=== PATIENT | female | born 1980 | race African-American/Black ===

== ENCOUNTER 2020-07-01 18:57 | Emergency (ER) | payer OTHER, SELFPAY ==
[2020-07-01 19:14] VITALS: BP 137/89; PULSE 65; RESP 16; TEMP 36.7; O2SAT 99
--- NOTE | 2020-07-01 19:27 | ED.EAR ---
HPI - Ear Problem General Chief complaint: Ear Stated complaint: Ear pain Time Seen by Provider: 07/01/20 19:18 Source: patient and RN notes reviewed Mode of arrival: ambulatory Limitations: no limitations History of Present Illness HPI Narrative: Patient presents today complaining of ringing in her right ear with pain, absent hearing. Reports it came on gradually last night as she sat next to a loud speaker. She currently rates her pain 9/10. She has been using [id number] eardrops without relief. Denies any other sick symptoms to include cough, congestion, rhinorrhea, sore throat. MD Complaint: ear pain and decreased hearing Related Data Home Medications Medication Instructions Recorded Confirmed Adult Probiotic 07/01/20 Daily Multi-Vitamin 07/01/20 07/01/20 hydrochlorothiazide 12.5 mg PO DAILY 07/01/20 07/01/20 Allergies Allergy/AdvReac Type Severity Reaction Status Date / Time No Known Allergies Allergy Verified 07/01/20 19:19 Review of Systems Review of Systems: Narrative: CONSTITUTIONAL: Denies body aches, fever, chills, or sweats. EYES: Denies visual changes, redness, or discharge. ENT: Denies rhinorrhea, congestion, sore throat. + Right ear pain and absent hearing CARDIOVASCULAR: Denies chest pain, palpitations, or edema. RESPIRATORY: Denies cough or dyspnea. GASTROINTESTINAL: Denies abdominal pain, nausea, vomiting, or diarrhea. GENITOURINARY: Denies dysuria or hematuria. SKIN: Denies rash, itching, or wounds. MUSCULOSKELETAL: Denies back pain, joint pain, or myalgia. NEUROLOGIC: Denies headache, numbness, tingling, or weakness. PSYCH: Denies depression or anxiety. PENDING SALE TO [facility] Past Medical History Medical History (Updated 07/01/20 @ 19:31 by Carlene Thurman, [facility], ) Hypertension Family History Family History (Updated 12/01/17 @ 08:27 by DOCTOR UNKNOWN) Mother Patient's mother is in good health Father Patient's father is in good health Social History Social History Smoking status: Never smoker Alcohol intake: current Gender identity (if verbalized by the patient): Female Comments At time of signature, I have reviewed and agree with nursing past medical, surgical, social and family history unless otherwise noted. Please see nursing chart for further information. There is no relevant family history pertinent to the presenting complaint Exam Narrative: Exam Narrative: GENERAL: Well-appearing, well-nourished, and in no acute distress. HEAD: Normocephalic, atraumatic. EYES: EOMI. No redness or drainage. Conjunctivae normal. ENT: Mucous membranes pink and moist. Nares clear. No rhinorrhea. Left TM normal. Right TM is normal in color, but retracted. No rupture noted. No erythema or purulent drainage noted. NECK: Normal AROM. CHEST: No respiratory distress. EXTREMITIES: Normal range of motion. No edema. SKIN: Warm, dry, no rash. Capillary refill normal. Normal skin turgor. NEURO: No focal deficits. Alert and oriented x3. Gait steady. PSYCH: Normal affect. No signs of depression or anxiety. Course Vital Signs Vital signs: Vital Signs Temperature 98.1 F 07/01/20 19:14 Pulse Rate 65 07/01/20 19:14 Respiratory Rate 16 07/01/20 19:14 Blood Pressure 137/89 07/01/20 19:14 Pulse Oximetry 99 07/01/20 19:14 Temperature 98.1 F 07/01/20 19:14 Pulse Rate 65 07/01/20 19:14 Respiratory Rate 16 07/01/20 19:14 Blood Pressure 137/89 07/01/20 19:14 Pulse Oximetry 99 07/01/20 19:14 Reviewed. Pt has been instructed to follow up with her PCP regarding her elevated blood pressure today. Medical Decision Making Differential Diagnosis Differential Diagnosis: Otitis media, otitis externa, ruptured TM, serous otitis, eustachian tube dysfunction, cerumen impaction Vital Signs Vital Signs: Vital Signs Temperature 98.1 F 07/01/20 19:14 Pulse Rate 65 07/01/20 19:14 Respiratory Rate 16 07/01/20 19:14 Blood Pressure 137/89 10/2
== END 2020-07-01 19:34 | disposition home or self-care (01) ==
PROVIDERS: Emergency Provider Nurse Practitioner
DX: H73.891 Other specified disorders of tympanic membrane, right ear (principal); I10 Essential (primary) hypertension
CPT/HCPCS: 99201; G0463

== ENCOUNTER 2021-06-05 17:59 | Outpatient (CLI) | payer OTHER, SELFPAY ==
--- NOTE | ~2021-06-05 | MM_ITS ---
EXAMINATION: MM screening bonilla BI w brittni HISTORY: Screening TECHNIQUE: Craniocaudal and mediolateral oblique 3-D tomosynthesis images were obtained and synthetic 2-D images were generated. CAD analysis was submitted and interpreted. COMPARISON: No prior mammogram is available for comparison at this institution. BREAST PARENCHYMAL COMPOSITION: There are scattered areas of fibroglandular density. FINDINGS: There is no evidence of suspicious mass, calcification, or architectural distortion to sugg est malignancy in either breast. There has been no suspicious interval change. IMPRESSION: 1. No mammographic evidence of malignancy. 2. Recommend routine screening mammography in one year. BI-RADS Category 1: Negative Reviewed, dictated and finalized at location A.
== END 2021-06-05 18:00 ==
PROVIDERS: Visit Provider Obstetrics & Gynecology
DX: Z12.31 Encounter for screening mammogram for malignant neoplasm of breast (principal)
CPT/HCPCS: 77063; 77067

== ENCOUNTER 2021-06-24 10:59 | Emergency (ER) | payer BC, SELFPAY ==
--- NOTE | ~2021-06-24 | XR_ITS ---
EXAMINATION: XR lumbar spine 2-3V DATE: 06/24/2021 12:05 INDICATION: Low back pain radiating to the left leg post fall TECHNIQUE: Anteroposterior and lateral views of the lumbar spine, and cone-down lateral view of the l umbosacral junction were obtained. COMPARISON: None. FINDINGS: 4 mm retrolisthesis L5 on S1. 2 mm anterolisthesis L4 on L5. Vertebral body and disc heights are norm al. Severe bilateral facet osteoarthritis at L4-L5, moderate at L5-S1 and mild in the more cephalad l umbar spine. Sacral arches are intact. Bilateral sacral iliac joints are normal. Mild right hip osteo arthritis. IMPRESSION: 1. Moderate to severe lower lumbar facet osteoarthritis with 2 mm anterolisthesis L4 on L5 and 4 mm r etrolisthesis L5 on S1. Reviewed, dictated and finalized at location A. IMPRESSION: 1. Moderate to severe lower lumbar facet osteoarthritis with 2 mm anterolisthes is L4 on L5 and 4 mm retrolisthesis L5 on S1.
[2021-06-24 11:29] VITALS: BP 158/108; PULSE 63; RESP 18; TEMP 36.7; O2SAT 100
--- NOTE | 2021-06-24 12:27 | ED.FALL ---
HPI - Fall General Chief Complaint: Fall Stated Complaint: fall/back pain/uri Time Seen by Provider: 06/24/21 11:14 Source: patient Mode of arrival: ambulatory Limitations: no limitations History of Present Illness HPI Narrative: Patient fell down the stairs April 28, complaining of lower back pain. Patient denies radiation of pain, also denies other injuries. Patient was seen by emergency room at that time. But the pain is not improving. Patient denies any fever, chills, nausea, vomiting, tingling, numbness, weakness, radiation of pain. Pain worse with movement, better at rest Related Data Home Medications Medication Instructions Recorded Confirmed Adult Probiotic 07/01/20 Daily Multi-Vitamin 07/01/20 07/01/20 hydrochlorothiazide 12.5 mg PO DAILY 07/01/20 07/01/20 Allergies Allergy/AdvReac Type Severity Reaction Status Date / Time No Known Allergies Allergy Verified 06/24/21 11:32 Review of Systems Review of Systems: CONSTITUTIONAL: Denies fever, chills, or sweats. EYES: Denies visual changes, redness, or discharge. ENT: Denies rhinorrhea, congestion, sore throat, or otalgia. CARDIOVASCULAR: Denies chest pain, palpitations, or edema. RESPIRATORY: Denies cough or dyspnea. GASTROINTESTINAL: Denies abdominal pain, nausea, vomiting, or diarrhea. GENITOURINARY: Denies dysuria or hematuria. SKIN: Denies rash or itching. MUSCULOSKELETAL: Denies back pain, joint pain, or myalgia. NEUROLOGIC: Denies headache, numbness, or weakness. PSYCHIATRIC: Denies anxiety or depression. PMFSH Past Medical History Medical History Hypertension Family History Family History Mother Patient's mother is in good health Father Patient's father is in good health Social History Social History Smoking status: Never smoker Alcohol intake: current Gender identity (if verbalized by the patient): Female Exam Narrative: General appearance: Well-developed, well-nourished Skin: Normal color Head: Normocephalic, nontraumatic Eyes: Clear conjunctiva ENT: Oropharynx normal, ears normal, nose normal Neck: Supple, nontender Chest and respiratory: Airway patent, no respiratory distress, no accessory muscle use Heart: Regular rate/rhythm Abdomen: Soft, nontender, no organomegaly, quiet bowel sounds Vascular: Normal peripheral pulses, normal capillary refill. Musculoskeletal: Diffuse tenderness across lumbar area, no bruises, no swelling, no rash, limited range of motion. Neurologic: Alert and oriented ?3, LEGAL ACTIVITY ADJUDICATOR is normal as tested, no gross motor deficit Course Course Emergency Course: Stable Vital Signs Vital signs: Vital Signs Temperature 36.7 C 06/24/21 11:29 Pulse Rate 63 06/24/21 11:29 Respiratory Rate 18 06/24/21 11:29 Blood Pressure 158/108 H 06/24/21 11:29 Pulse Oximetry 100 06/24/21 11:29 Temperature 36.7 C 06/24/21 11:29 Pulse Rate 63 06/24/21 11:29 Respiratory Rate 18 06/24/21 11:29 Blood Pressure 158/108 H 06/24/21 11:29 Pulse Oximetry 100 06/24/21 11:29 MDM - Fall MDM Narrative Medical decision making narrative: Lower back pain secondary to a fall, musculoskeletal pain is my concern x-ray lumbar spine ordered Imaging Data Radiologist's impression: Impressions Lumbar Spine X-Ray 06/24/21 12:27 IMPRESSION: 1. Moderate to severe lower lumbar facet osteoarthritis with 2 mm anterolisthesis L4 on L5 and 4 mm retrolisthesis L5 on S1. Critical Care Time Critical Care Time Critical Care Time: No Discharge Plan Discharge Cli
== END 2021-06-24 13:35 | disposition home or self-care (01) ==
PROVIDERS: Emergency Provider Emergency Medicine
DX: S39.92XA Unspecified injury of lower back, initial encounter (principal); I10 Essential (primary) hypertension; W10.9XXA Fall (on) (from) unspecified stairs and steps, initial encounter; M47.816 Spondylosis without myelopathy or radiculopathy, lumbar region
CPT/HCPCS: 72100; 99283

== ENCOUNTER 2022-04-26 13:44 | Emergency (ER) | payer BC, SELFPAY ==
[2022-04-26 14:07] VITALS: BP 142/74; PULSE 73; RESP 18; TEMP 36.1; O2SAT 100
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
--- NOTE | 2022-04-26 16:01 | PC.NURSE ---
CO-oximeter reading 0%. MD aware.
== END 2022-04-26 16:24 | disposition home or self-care (01) ==
PROVIDERS: Emergency Provider Emergency Medicine
DX: R51.9 Headache, unspecified (principal); I10 Essential (primary) hypertension; E66.01 Morbid (severe) obesity due to excess calories; Z68.41 Body mass index [BMI] 40.0-44.9, adult
CPT/HCPCS: 99281

== ENCOUNTER 2024-01-07 18:36 | Emergency (ER) | payer BC, SELFPAY ==
[2024-01-07 18:57] VITALS: BP 127/92; PULSE 74; RESP 16; TEMP 36.3; O2SAT 100
--- NOTE | 2024-01-07 18:58 | ED.URI ---
HPI - URI/Sore Throat General Chief Complaint: Upper Respiratory Infection Stated Complaint: Cough Time Seen by Provider: 01/07/24 18:58 Source: patient, RN notes reviewed and old records reviewed Mode of arrival: ambulatory Limitations: no limitations History of Present Illness HPI Narrative: 43 year old female presents to [facility] care with complaints of cough and congestion with nasal congestion and drainage since Thursday with no known fever but has had chills and felt hot at times. Patient reports that she has had some headaches, denies any ear pain or any sore throat. Patient reports that she has been taking Tylenol and also Mucinex for her symptoms, states that cough is productive of clear mucous. Patient reports that she has not had any dyspnea.She reports that both of her parents have similar symptoms MD elicited complaint: cough, rhinorrhea, nasal congestion and other (headache, chills and felt feverish) Onset (ago): day(s) (5-6 day) Severity: moderate Description of mucous: clear Able to tolerate fluids by mouth: Yes Treatments prior to arrival: acetaminophen and other (Mucinex) Related Data Home Medications Medication Instructions Recorded Confirmed losartan 50 mg tablet 50 mg PO DIRECTED 01/07/24 01/07/24 Allergies Allergy/AdvReac Type Severity Reaction Status Date / Time No Known Allergies Allergy Verified 01/07/24 18:48 Review of Systems Review of Systems: CONSTITUTIONAL: Reports malaise, chills, sweats, has felt feverish EYES: Denies visual changes, redness, or discharge. ENT: Reports rhinorrhea, congestion, sinus pain, no otalgia and no sore throat. CARDIOVASCULAR: Denies chest pain, palpitations, or edema. RESPIRATORY: Reports productive cough.? Denies dyspnea. GASTROINTESTINAL: Denies abdominal pain, nausea, vomiting, diarrhea SKIN: Denies rash or itching. MUSCULOSKELETAL: Denies myalgia. NEUROLOGIC: Reports headache. All systems reviewed & are unremarkable except as noted in HPI and below PMFSH Past Medical History Medical History Benign essential HTN Chronic migraine Degenerative arthritis of knee, bilateral History of meniscal tear Hypertension Morbid (severe) obesity due to excess calories PIH ( induced hypertension) Surgical History Surgical History H/O left knee surgery 10/08/2012 - Debrided left patellar tendon History of tubal ligation 10/2017 Family History Family History Mother CHF (congestive heart failure) Father Patient's father is in good health Other Diabetes mellitus Glaucoma Heart disease High cholesterol Hypertension Social History Social History Social History: Smoking status: Never smoker Alcohol intake: current Drinks per week: 4 Substance use: never Substance use type: does not use Living arrangements: with family Occupation/Education: occupation 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 There is no relevant family history pertinent to the presenting complaint Exam Narrative: GENERAL: Well-appearing, well-nourished, and in no acute distress. HEAD: Normocephalic EYES: PERRLA, conjunctivae clear ENT: Nares clear, turbinates edematous and erythematous, clear discharge. Mucous membranes moist.sinus pressure and headache TM pearly gary with dull light reflex bilaterally; no tragal tenderness. Oropharynx eryth
== END 2024-01-07 19:51 | disposition home or self-care (01) ==
PROVIDERS: Emergency Provider Registered Nurse; PCP Internal Medicine
DX: J06.9 Acute upper respiratory infection, unspecified (principal); Z20.822 Contact with and (suspected) exposure to COVID-19; I10 Essential (primary) hypertension; M17.0 Bilateral primary osteoarthritis of knee; E66.01 Morbid (severe) obesity due to excess calories; Z68.41 Body mass index [BMI] 40.0-44.9, adult
CPT/HCPCS: 87426; 87804; 99213; G0463

== ENCOUNTER 2024-06-30 10:14 | Emergency (ER) | payer BC, SELFPAY ==
[2024-06-30 10:22] VITALS: BP 142/83; RESP 16; TEMP 36.4
[2024-06-30 11:07] LABS: Add Urine Microscopic? YES; Appearance Urine Clear (Clear); Bacteria Urine 4+ /hpf; Bilirubin Urine Negative (Negative); Blood Urine 3+ (Negative); Color Urine Yellow (Yellow); Glucose Urine UA Negative (Negative); Ketones Urine Negative (Negative); Leukocyte Esterase Ur Trace LEU/UL (Negative); Nitrate Urine Negative (Negative); Non Pathogenic Casts 0-2; Protein Urine Negative (Negative); RBC Urine 0-2 /hpf (0-2); Specific Grav Ur 1.013 (1.001-1.035); Squamous Epithelial Cell Urine Occasional /hpf (Few); Urobilinogen Urine 0.2 mg/dL (<2.0); WBC Urine 0-5 /hpf (0-3); pH Urine 7.5 (5.0-9.0)
[2024-06-30 11:13] LABS: Basophils Percent Auto 0.6 % (0.2-1.2); Eosinophils Percent Auto 0.6 % (0-4.4); Hematocrit 34.3 % (37.0-47.0); Hemoglobin 11.6 g/dL (12.0-15.0); Immature Granulocyte Absolute 0.01 K/mm3 (0.00-0.031); Immature Granulocyte Percent A 0.2 % (0-0.5); Lymphocytes Absolute Auto 2.33 K/mm3 (0.9-3.2); Lymphocytes Percent Auto 48.9 % (18.3-44.2); Mean Corpuscular HGB Conc 33.8 g/dl (32-36); Mean Corpuscular Hemoglobin 31.2 pg (26-34); Mean Corpuscular Volume 92.2 fl (80-100); Mean Platelet Volume 9.3 fl (7.4-10.4); Monocytes Absolute Auto 0.3 K/mm3 (0.1-0.6); Monocytes Percent Auto 6.7 % (2.6-8.5); Platelet Count Result 305 k/mm3 (150-375); Red Blood Count 3.72 M/mm3 (4.2-5.4); Red Cell Distribution Width 13.2 % (11.5-14.5); White Blood Count 4.8 K/mm3 (4.5-10.0)
[2024-06-30 11:22] LABS: Anion Gap 7 mmol/L (4-12); Blood Urea Nitrogen 10 mg/dL (7-17); Calcium 8.9 mg/dL (8.4-10.2); Carbon Dioxide 27 mmol/L (22-30); Chloride 103 mmol/L (98-107); Estimated CRCL calculation 142 ml/min; Estimated Glomerular Filt Rate > 60; Glucose 89 mg/dL (65-110); Potassium 3.7 mmol/L (3.4-5.0); Sodium 137 mmol/L (137-145)
--- NOTE | 2024-06-30 12:45 | ED_ITS ---
HPI - Female Genitourinary General Chief complaint: Vaginal Bleeding Stated complaint: vag bleeding, endometrial biopsy 06/23 Time Seen by Provider: 06/30/24 10:31 Source: patient Mode of arrival: ambulatory Limitations: no limitations History of Present Illness HPI Narrative: 43-year-old with a history of hypertension, abnormal vaginal bleeding here with the complaints of heavy vaginal bleeding for past few days. Patient states that she recently had endometrial biopsy following day after the biopsy she said she had heavy vaginal bleeding with few clots. She is presently on progesterone 10 mg p.o. b.i.d. she states that she continues to have bleed. She states that she was dizzy on the 1st day however today she is feeling much better. She denies any fever or chills. Has occasional lower abdominal cramping MD elicited complaint: vaginal bleeding Pertinent past history: other (DUB) Onset (ago): week(s) Severity: moderate Quality of pain: cramping Consistency: intermittent Vaginal bleeding: moderate Exacerbating factors: none Relieving factors: none Associated symptoms: abdominal pain Treatment prior to arrival: other Related Data Home Medications Medication Instructions Recorded Confirmed losartan 50 mg tablet 50 mg PO DIRECTED 01/07/24 06/23/24 Allergies Allergy/AdvReac Type Severity Reaction Status Date / Time No Known Allergies Allergy Verified 06/30/24 10:16 [facility] Past Medical History Medical History (Updated 06/30/24 @ 12:46 by Jamie Tenorio MD) Benign essential HTN Chronic migraine Degenerative arthritis of knee, bilateral History of meniscal tear Hypertension Morbid (severe) obesity due to excess calories PIH ( induced hypertension) Thyroid nodule Surgical History Surgical History H/O left knee surgery 10/08/2012 - Debrided left patellar tendon History of tubal ligation 10/2017 Family History Family History Mother CHF (congestive heart failure) Lupus Father Glaucoma High cholesterol Hypertension Other Diabetes mellitus Heart disease Social History Social History Social History: Smoking status: Never smoker Alcohol intake: current Drinks per week: 4 Alcohol use details: occasionally Substance use: never Substance use type: does not use Do You Feel Safe in your Home?: Yes Lack of Transportation: No Lack of Food: Never True Current Housing: I Have Housing Concerned About Future Housing: No Difficulty Paying Gas/Electric Bills: YES Difficulty Paying for Meds: No Currently Unemployed: No Education: Associate Degree Difficulty w/ Childcare or Family Care: No Living arrangements: with family Additional living arrangements comments: kids Occupation/Education: occupation 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 HEAD: Normocephalic, atraumatic. EYES: PERRLA and EOMI. NECK: Supple. CHEST: Clear to auscultation. No respiratory distress. HEART: Regular rate and rhythm. No murmur heard. Normal peripheral pulses. ABDOMEN: Soft, nontender, nondistended, normal active bowel sounds. EXTREMITIES: Normal range of motion. No edema. SKIN: Warm, dry, no rash. NEURO: No focal deficits. Alert and oriented x3. PSYCH: Normal mood and affect. Course Course Emergency Course: Informed patient about her lab work. I discussed with Dr. Hoskins recommended to continue Provera of waiting for biopsy results . She will talk to the patient once she gets the pathology report. Patient feels comfortable going home Vital Signs Vital signs: Vital Signs Temperature 36.4 C L 06/30/24 10:22 Respiratory Rate 16 06/30/24 10:22 Blood Pressure 142/83 H 06/30/24 10:22 Temperature 36.4 C L 06/30/24 10:22 Respiratory Rate 16 06/30/24 10:22 Blood Pressure 142/83 H 06/30/24 10:22 MDM - Female Genitourinary Differential Diagnosis Differential diagnosis: Likely dysmenorrhea and other (DUB) Medical Records Attestation: I reviewed the patient's medical records. Lab Data Attestation: I reviewed the patient's lab results. 06/30/24 11:06 06/30/24 11:06 Labs: Lab Results 06/30/24 06/30/24 Range/Units 10:43 11:06 WBC 4.8 (4.5-10.0) K/mm3 RBC 3.72 L (4.2-5.4) M/mm3 Hgb 11.6 L (12.0-15.0) g/dL Hct 34.3 L (37.0-47.0) % MCV 92.2 (80-100) fl MCH 31.2 (26-34) pg MCHC 33.8 (32-36) g/dl RDW 13.2 (11.5-14.5) % Plt Count 305 (150-375) k/mm3 MPV 9.3 (7.4-10.4) fl Immature Gran % (Auto) 0.2 (0-0.5) % Neut % (Auto) 43.0 L (45.5-73.1) % Lymph % (Auto) 48.9 H (18.3-44.2) % [place] % (Auto) 6.7 (2.6-8.5) % Eos % (Auto) 0.6 (0-4.4) % Baso % (Auto) 0.6 (0.2-1.2) % Lymph # (Auto) 2.33 (0.9-3.2) K/mm3 [place] # (Auto) 0.3 (0.1-0.6) K/mm3 Eos # (Auto) 0.0 (0-0.3) K/mm3 Baso # (Auto) 0.0 (0.0-0.1) K/mm3 Abs Immat Gran (auto) 0.01 (0.00-0.031) K/mm3 Absolute Neuts (auto) 2.0 (1.3-6.7) K/mm3 Absolute Nucleated RBC 0.000 (0.0-0.012) K/mm3 Nucleated RBC % 0.0 (0.0-0.2) % Sodium 137 (137-145) mmol/L Potassium 3.7 (3.4-5.0) mmol/L Chloride 103 (98-107) mmol/L Carbon Dioxide 27 (22-30) mmol/L Anion Gap 7 (4-12) mmol/L BUN 10 (7-17) mg/dL Creatinine 0.60 L (0.7-1.0) mg/dL Estim Creat Clear Calc 142 ml/min Estimated GFR > 60 (59 - ) Glucose 89 (65-110) mg/dL Calcium 8.9 (8.4-10.2) mg/dL Urine Color Yellow (Yellow) Urine Appearance Clear (Clear) Urine pH 7.5 (5.0-9.0) Ur Specific [place] 1.013 (1.001-1.035) Urine Protein Negative (Negative) mg/dL Urine Glucose (UA) Negative (Negative) mg/dL Urine Ketones Negative (Negative) mg/dL Ur Blood (Man) 3+ H (Negative) Urine Nitrate Negative (Negative) Urine Bilirubin Negative (Negative) Urine Urobilinogen 0.2 (<2.0) mg/dL Leukocyte Esterase Rfl Trace H (Negative) BRENDAN/UL Urine RBC 0-2 (0-2) /hpf Urine WBC 0-5 (0-3) /hpf Ur Squamous Epith Cells Occasional (Few) /hpf Urine Bacteria 4+ H /hpf Urine Casts 0-2 Discharge Plan Discharge Clinical Impression: Dysfunctional uterine bleeding Patient Disposition: Home, Self-Care Condition: Stable Instructions: Abnormal (Dysfunctional) Uterine Bleeding (ED) Additional Instructions: continue home medications, follow with Dr. Hoskins , Drink more fluids. Prescriptions: New medroxyprogesterone [Provera] 10 mg tablet 10 mg PO BID Qty: 20 0RF No Action losartan 50 mg tablet 50 mg PO DIRECTED medroxyprogesterone [Provera] 10 mg tablet 10 mg PO DAILY Qty: 10 0RF Follow-up/Referrals: Shaka,MD Rl [Primary Care Provider] - Saloni Hoskins MD [Physician] - Time of Disposition: 12:48
[2024-06-30 12:56] VITALS: BP 141/93; PULSE 84; RESP 16
== END 2024-06-30 12:57 | disposition home or self-care (01) ==
PROVIDERS: Emergency Provider Family Medicine; PCP Internal Medicine
DX: N93.8 Other specified abnormal uterine and vaginal bleeding (principal); I10 Essential (primary) hypertension; E66.01 Morbid (severe) obesity due to excess calories; Z68.41 Body mass index [BMI] 40.0-44.9, adult; M17.0 Bilateral primary osteoarthritis of knee
CPT/HCPCS: 36415; 80048; 81001; 85025; 99283

== ENCOUNTER 2025-06-24 11:49 | Outpatient (CLI) | payer BC, SELFPAY ==
--- OUTSIDE RECORDS SUMMARY | 2003-11-06 03:00 | XMS_ITS | Continuity of Care Document ---
Author Organization [facility] Address [address] [place] [address] Phone Care Team Providers Care Employee Relations Director Name Role Phone Kaycee, Kashif Unavailable Unavailable Advance Directives Directive Yes / No Effective Date File Name No Information Encounters Encounter Description Practice Location Reason(s) For Visit Diagnoses Date Provider Providers Copied on Encounter [facility], [address], [place], [place], [id number], [place] tel:[phone] [facility] [place] No Information Mar-0 1-200 4 Doisy Edward. [address] [facility] [place] , [address], [place], [address], [place]. tel:[phone] Family History Family Member Type Diagnosis Age At Onset No Information Payers Payer name Insurance type Covered republican ID Authoriza tion(s) [facility] Out Of State [id number] Social History Type Description Quantity Date Captured Comments Sex Female Smoking Status No Information Chief Complaint And Reason For Visit No Information Reason For Referral Reason For Referral No Information History Of Present Illness Encounter Date Complaint History Of Prese nt Illness No Information Functional Status Date Functional Assessmen t No Information Instructions Date Instruction Additional Infor mation No Information Assessments Type Assessment Date No Information Patient Care Teams Name Effective Dates (start - stop) Status Members No Information
--- OUTSIDE RECORDS SUMMARY | 2024-06-25 04:00 | XMS_ITS ---
Author Organization [facility] Address [address] [place] [address] Care Team Providers Care Area Intelligence Technician Name Role Phone Migration, Provider Unavailable Unavailable REASON FOR VISIT EMR-Gianluca Encounters Encounter Location Date Provider Diagnosis [facility] [address] [facility] [place] [id number] 06/25/2024 Prov ider Migration Plan Of Treatment No Information Progress Notes * Marcy BLANCODOB:[birth year] (44 yo F)Acc No.[id number]:06/25/2024 Patient: Alvino Marcy MACIEL :1980 A ge:43 Y S ex:Female Address:[address] [place] [address], [address] Subjective: * Chief Complaints: * E MR-Gianluca * * Date:
--- OUTSIDE RECORDS SUMMARY | 2024-06-26 04:00 | XMS_ITS ---
Author Organization [facility] Address [address] [place] [address] Care Team Providers Care Cloth Folder Machine Name Role Phone Migration, Provider Unavailable Unavailable Allergies Allergen (clinical drug ingredient) Drug/Non Drug Allergy documented on EMR Reaction Allergy Type Onset Date Status losartan Losartan Unknown Drug Allergy 06/03/2016 Active REASON FOR VISIT EMR-Gianluca Social History Social History Additional Details Category Social Info Options Details Migrated Social History Migrated Social History Alcohol history:Currently drinks alcohol , Education level:Some College , 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[employer] , Frequency of drinks:Drinks rarely , Has the patient used cocaine?:No , Has the patient used marijuana?:No , Marital status: , Number of children:1 , Tobacco history:Never smoker Encounters Encounter Location Date Provider Diagnosis [facility] [address] [place], [place] [id number] 06/26/2024 Prov ider Migration Plan Of Treatment No Information Progress Notes * Marcy PALOMODOB:[birth year] (44 yo F)Acc No.[id number]:06/26/2024 Patient: Alvino GONSALEZFRENCH Marcy :1980 A ge:43 Y S ex:Female Address:[address] [place] [address], [address] Subjective: * Chief Complaints: * E MR-Gianluca * Surgical History: knee surgery ,notes : left * Family History: F ather: Glaucoma. M other: Congestive heart failure, H ypertension, L upus. 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 * Allergies: L osartan: Allergy - Onset Date 06/03/2016 * * Date:
--- OUTSIDE RECORDS SUMMARY | 2025-06-24 11:56 | XMS_ITS | Patient Health Record ---
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 , Frequency of drinks:Drinks rarely , Has the patient used cocaine?:No , Has the patient used marijuana?:No , Marital status: , Number of children:1 , Tobacco history:Never smoker Problems Problem Type SNOMED Code ICD Code Onset Dates Problem Status W/U Status Risk Notes Problem Obesity due to excess calories (708812406) Other obesity due to excess calories (E66.09) 06/03/2016 Active confirmed Problem Alopecia areata (05720806) Alopecia areata, unspecified (L63.9) 06/03/2016 Active confirmed Problem Hirsutism (651696243) Hirsutism (L68.0) 06/03/2016 Active confirmed Problem Body mass index 40+ - severely obese (071620465) Body mass index (BMI) 40.0-44.9, adult (Z68.41) 06/03/2016 Active confirmed Encounters Encounter Location Date Provider Diagnosis [facility] [address] [place] [id number] 06/25/2024 Prov ider Migration [facility] [address] [place] [id number] 06/26/2024 Prov ider Migration Plan Of Treatment No Information Medical (General) History Surgical History Surgery Date(Month/Year) knee surgery ,notes : left
--- OUTSIDE RECORDS SUMMARY | 2025-06-24 11:56 | XMS_ITS | Clinical Summary ---
Author Organization [facility] Address [address] [place] [address] Phone Care Team Providers Care Truck Packer Name Role Phone Unavailable Primary Care Provider Unavailabl e Social History Tobacco Use Types Packs/Day Years Used Date Smoking Tobacco: Never Assessed Comments Unknown Sex and Gender Information Value Date Recorded Sex Assigned at Not on file Legal Sex Female 9:56 PM CDT Gender Identity Not on file Sexual Orientation Not on file Plan of Treatment Health Maintenance Due Date Last Done Comments Hepatitis C Virus (HCV) Screening 1979 TdaP Immunization 1979 Hepatitis B Immunization (1 of 3 - 19+ 3-dose series) 1998 Pap Smear 2000 Human Papillomavirus (HPV) Immunization (1 - 3-dose SCDM series) 2006 Cervical Cancer Screening (CCS) 2009 HPV/Cotest 2009 Cologuard 2024 Colonoscopy 2024 Colorectal Cancer Screening 2024 Immunochemical Fecal Occult Blood 2024 Influenza Immunization (#1) 2025 SARS-COV-2 Immunization ( season) 2025 Respiratory Syncytial Virus (RSV) Immunization (Adult) (1 - 1-dose 75+ series) 2054 Meningococcal Immunization (ACWY) Aged Out No longer eligible based on patient's age to complete this topic Pneumococcal Immunization Combined Aged Out No longer eligible based on patient's age to complete this topic Rotavirus Immunization Aged Out No lo nger eligible based on patient's age to complete this topic
--- OUTSIDE RECORDS SUMMARY | 2025-06-24 11:56 | XMS_ITS | Data Portability ---
Author Organization [place] - [facility] [employer], Main Office Address [address] [place] [address] Assessment Encounter Date Assessment Date Assessment LastModified by Organization Details LastModified Time 02/26/2023 02/26/2023 Lasix 20 mg neetu y p.r.n. for edema continue antihypertensive therapy continue pulmonary consult get a sleep study see me in 4 months ultrasound of neck reviewed recommended by Radiology at this time not to pursue any FNA will monitor it has not changed in size in several years [email or web address] Not available 03/10/2023 19:06:44 02/15/2024 02/15/2024 Assessment: Dyspnea AGUSTÍN Pulmonary hypertension (mild TR, RVSP 40 mmHg) Plan: The following were reviewed and explained to the patient: Chest 2 views 11/17/22 no acute process, borderline enlarged heart PFT 11/17/22 nl FEV1/FVC, FEV1 2.50 L (101%), TLC 3.89 L (69%), DLCO 62%, DLCO/VA 122% [facility] diagnostic sleep study 01/08/12 snoring = mild to moderate, sleep onset = 7 minutes, REM onset = 69.5 minutes, sleep efficiency = 91%, REM sleep = 22%, supine sleep = 2%, AHI = 0.0, PLMI = 0.0 Lab data 12/31/22 multiple environmental allergies 2-D echocardiogram 11/26/22 mild TR, RVSP 40 mmHg General information on sleep disordered breathing, evaluation of sleep disordered breathing, treatment with PAP therapy, and living with PAP therapy were covered. PSG is medically necessary to determine the degree of and management of sleep apnea. We discussed with the patient the impact of weight on: Sleep disordered breathing Hypertension We discussed with the patient the benefit of PAP therapy on: Sleep disordered breathing Mild TR RVSP 40 mmHg Hypertension Educated the patient on sleep hygiene measures. Relaxing rituals to rest easy, understanding foods with positive and negative impact on sleep, creating a peaceful sleep environment, timing of exercise, using herbal sleep aids, and practicing sleep-friendly meditation were covered. To determine how much sleep is needed, the patient will assess where she falls on the spectrum, examine what lifestyle factors such as work schedules and stress are affecting the quality and quantity of sleep. In general, adults need 7-9 hours of sleep. Educated the patient regarding foods that promote sleep. These include but are not limited to cherries, bananas, toast, oatmeal, and warm milk. Educated the patient regarding foods and drinks to avoid before bedtime. These include but are not limited to aged cheese, chocolate, spicy foods, tomato-based sauces, soy, ginseng tea and processed meat. Encouraged patient to adjust caloric intake to maintain/achieve ideal body weight, emphasizing on fruits, vegetables, whole grains, and fat-free or low-fat products. These include lean meats, poultry, fish, beans, eggs, and nuts and foods that are low in saturated fats, trans-fats, cholesterol, salt (sodium), and glycemic index. Cough/Dyspnea workup will be done as follows: Methacholine challenge test There are five different groups of pulmonary hypertension (PH) based on different causes. These groups are defined by the World Health Organization (WHO) and are referred to as PH WHO Groups. Group 1: Pulmonary Arterial Hypertension (PAH) Group 2: Pulmonary Hypertension Due to Left Heart Disease Group 3: Pulmonary Hypertension Due to Lung Disease Group 4: Pulmonary Hypertension Due to Chronic Blood Clots in the Lungs Group 5: Pulmonary Hypertension Due to Unknown Causes Pulmonary hypertension (PH) workup will be done as follows: V/Q scan to evaluate for chronic thromboembolic disease. Check Scl-70, BERNARDO, ANCA, rheumatoid factor, HIV serologies. Patient will be referred to Dr. Sedrick Rodriguez or Dr. Mi Steele at the [facility] for further evaluation. Advised to continue not to smoke. Adherence to therapy is advocated. Nonadherence may lead to treatment failure, further progression of the condition, and other complications. Hospitals admissions are often the result of individuals not taking prescription medications accurately. Alternatively, greater adherence to medication regimens have shown to lower rates of hospitalization and decrease total medical costs in patients with chronic medical conditions. Advocated influenza vaccination annually and pneumonia vaccination in 2044. Advocated weight loss through diet and exercise. Patient's ideal body weight according to height and gender is up to 145 lbs. Encouraged patient to adjust caloric intake to maintain/achieve ideal body weight, emphasizing on fruits, vegetables, whole grains, and fat-free or low-fat products. These include lean meats, poultry, fish, beans, eggs, and nuts and foods that are low in saturated fats, trans-fats, cholesterol, salt (sodium), and glycemic index. Stressed the importance of regular exercise up to the patient's capacity limits. In this case, we recommend 20 min daily walking, 2 days a week of resistance training. Patient to monitor BP daily and bring records to PCP for further management. Follow-up: 1 week after diagnostic sleep study, methacholine challenge testing & V/Q scan [email or web address] Not available 02/15/2024 16:22:36 03/29/2024 03/29/2024 01/06/2024: VIT D 13.8 TSH 0.423L, FT4 WNL K 3.3L, gluc 108 02/15/2024: CBC: Stable [email or web address] Not available 03/29/2024 17:24:40 Plan of Treatment Reminders Order Date Submit Date Provider Last Modified By Organization Details Last Modified Time Details Appointments None recorded. Lab vitamin D, 25-hydroxy, total, serum 2023 024 [email or web address] 6 [facility] (Lab), [address] [place], [address], 5 09:18:41 CMP, serum or plasma 2023 [email or web address] [place] [address] (Lab), [address] [place], [address], 5 09:18:41 CBC w/ auto diff 2023 [email or web address] [place] [address] (Lab), [address] [place], [address], 5 09:18:41 lipid panel, serum 2023 024 [email or web address] (Lab), [address] [place], [address], 5 09:18:41 T4, free, serum 2023 024 [email or web address] 6 [facility] (Lab), [address] [place], [address], 5 09:18:41 TSH, serum or plasma [email or web address] (Lab), [address] [place], [address], 5 09:18:42 vitamin B12 + folate, serum or blood [address] (Lab), [address] [place], [address], 5 09:18:41 scleroderma (SCL-70) autoantibod ies, serum [address] (Lab), [address] [place], [address], 4 09:00:23 BERNARDO (antinuclea r antibodies) screen, serum [address] (Lab), [address] [place], [address], 4 09:00:23 anca panel, serum [address] (Lab), [address] [place], [address], 4 09:00:23 rf (rheumatoid factor), serum [email or web address] (Lab), [address] [place], [address], 4 09:00:23 HIV (1+2) Ab screen, serum 2023 024 [facility] (Lab), [address] [place], [address], 4 19:09:37 vitamin D, 25-hydroxy, total, serum 2023 024 [email or web address] 6 [facility] (Lab), [address] [place], [address], 4 09:42:45 CMP, serum or plasma 2023 024 [facility] (Lab), [address] [place], [address], 4 15:53:10 CBC w/ auto diff 2023 024 [facility] (Lab), [address] [place], [address], 4 14:19:25 lipid panel, serum 2023 024 [facility] (Lab), [address] [place], [address], 4 15:53:19 T4, free, serum 2023 024 [facility] (Lab), [address] [place], [address], 4 16:14:47 TSH, serum or plasma 2023 024 [facility] (Lab), [address] [place], [address], 4 16:27:12 vitamin B12 + folate, serum or blood 2023 024 [email or web address] 6 [facility] ([facility]), [address] [place], [address], 4 09:42:45 Referral obstetricia n and gynecologis t referral 2023 024 [email or web address] Hoskins MD, [address] [facility] [address], [place], [address], 5 11:27:[address] referral 2023 024 [email or web address] 6 Heath Salomon MD, [address] [place], [address], 4 11:32:22 EGD referral 2023 024 randy Ricci MD, [address], [place], [address], 5 11:27:[address] referral 2023 024 randy Salomon MD, [address] [place], [address], 4 09:03:53 obstetricia n and gynecologis t referral 2023 024 randy Hoskins MD, [address] [facility] [address], [place], [address], 4 10:17:49 EGD referral 2023 024 arndy Ricci MD, [address], [place], [address], 5 10:54:46 Procedures polysomnogr aphy, diagnostic (PROC) 2022 023 cyahl [facility], [address] [place], [address], 3 10:14:34 Surgeries None recorded. Imaging MAMMO, screening, bilateral [address] ([facility]), [address] [place], [address], 4 12:34:01 US, thyroid [address] ([facility]), [address] [place], [address], 4 12:34:00 polysomnogr am, diagnostic, 6 yrs or older - NEW AUTH: approved [id number] 03/03/2024 - 05/01/20242023 024 [facility] [place], [address] [place], [address], 5 18:08:09 NM, lung scan, ventilation /perfusion - no auth required [address] ([facility]), [address] [place], [address], 4 08:24:54 US, thyroid [address] ([facility]), [address] [place], [address], 4 16:28:30 Medication Orders Lasix 20 mg tablet 2022 023 [email or web address] [email or web address] [id number], [address] [place], [place], [id number], 4 16:09:38 Patient TargetsNo targets recorded. 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 Referring Physician: Rl [facility], Encounter Date: 11/24/2023 EGD Referral for Intermitten t dysphagia Referring Physician: Rl Matt [facility], Encounter Date: 11/24/2023 Molder Machine Referral for O bstructive sleep apnea syndrome Referring Physician: Rl Matt [facility], Encounter Date: 11/24/2023 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 Referring Physician: Rl [facility], Encounter Date: 03/29/2024 EGD Referral for Intermitten t dysphagia Referring Physician: Rl [facility], Encounter Date: 03/29/2024 Molder Machine Referral for D yspnea on exertion Referring Physician: Rl [facility], Encounter Date: 03/29/2024 Results Created Date Observation Date Name Description Value Unit Range Abnormal Flag Note LastModifiedBy Organization Detail LastModifiedTime 01/06/20 24 01/06/2024 CBC/C OMPLE TE BLD COUNT W/DIF F white blood cells 3.4 x10'3 /uL 4.2-10 .8 low Not Available [facility] (Lab) [address] [place], [address], 01/06/2024 14:19:25 01/06/20 24 01/06/2024 CBC/C OMPLE TE BLD COUNT W/DIF F red blood cells 4.14 x10'6 /uL 3.80-5 .20 Not Available [facility] (Lab) [address] [place], [address], 01/06/2024 14:19:25 01/06/20 24 01/06/2024 CBC/C OMPLE TE BLD COUNT W/DIF F hemoglobin 12.9 g/dL 12.0-1 5.6 Not Available [facility] (Lab) [address] [place], [address], 01/06/2024 14:19:25 01/06/20 24 01/06/2024 CBC/C OMPLE TE BLD COUNT W/DIF F hematocrit 37.5 % 35.7-4 5.7 Not Available [facility] (Lab) [address] [place], [address], 01/06/2024 14:19:25 01/06/20 24 01/06/2024 CBC/C OMPLE TE BLD COUNT W/DIF F mean red cell volume 90.6 fL 82.0-9 9.0 Not Available [facility] (Lab) [address] [place], [address], 01/06/2024 14:19:25 01/06/20 24 01/06/2024 CBC/C OMPLE TE BLD COUNT W/DIF F mean red cell hemoglobin 31.2 pg 27.0-3 3.0 Not Available [facility] (Lab) [address] [place], [address], 01/06/2024 14:19:25 01/06/20 24 01/06/2024 CBC/C OMPLE TE BLD COUNT W/DIF F mean RBC HGB concentratio n 34.4 g/dL 31.0-3 6.0 Not Available [facility] (Lab) [address] [place], [address], 01/06/2024 14:19:25 01/06/20 24 01/06/2024 CBC/C OMPLE TE BLD COUNT W/DIF F red cell distribution width 13.2 % 11.8-1 5.5 Not Available [facility] (Lab) [address] [place], [address], 01/06/2024 14:19:25 01/06/20 24 01/06/2024 CBC/C OMPLE TE BLD COUNT W/DIF F platelets 302 x10'3 /uL 150-40 0 Not Available [facility] (Lab) [address] [place], [address], 01/06/2024 14:19:25 01/06/20 24 01/06/2024 CBC/C OMPLE TE BLD COUNT W/DIF F mean platelet volume 9.9 fL 9.0-12 .4 Not Available [facility] (Lab) [address] [place], [address], 01/06/2024 14:19:25 01/06/20 24 01/06/2024 CBC/C OMPLE TE BLD COUNT W/DIF F neutrophils 47.6 % 39.0-7 2.0 Not Available [facility] (Lab) [address] [place], [address], 01/06/2024 14:19:25 01/06/20 24 01/06/2024 CBC/C OMPLE TE BLD COUNT W/DIF F lymphocytes 36.3 % 16.0-4 7.0 Not Available [facility] (Lab) [address] [place], [address], 01/06/2024 14:19:25 01/06/20 24 01/06/2024 CBC/C OMPLE TE BLD COUNT W/DIF F monocytes 14.9 % 5.0-12 .0 high Not Available [facility] (Lab) [address] [place], [address], 01/06/2024 14:19:25 01/06/20 24 01/06/2024 CBC/C OMPLE TE BLD COUNT W/DIF F eosinophils 0.3 % 1.0-7. 0 low Not Available [facility] (Lab) [address] [place], [address], 01/06/2024 14:19:25 01/06/20 24 01/06/2024 CBC/C OMPLE TE BLD COUNT W/DIF F basophils 0.9 % 0.0-2. 0 Not Available [facility] (Lab) [address] [place], [address], 01/06/2024 14:19:25 01/06/20 24 01/06/2024 CBC/C OMPLE TE BLD COUNT W/DIF F immature granulocytes 0.0 % 0.00-0 .50 Not Available [facility] (Lab) [address] [place], [address], 01/06/2024 14:19:25 01/06/20 24 01/06/2024 CBC/C OMPLE TE BLD COUNT W/DIF F neutrophils, absolute count 1.63 x10'3 /uL 1.5-8. 0 Not Available [facility] (Lab) [address] [place], [address], 01/06/2024 14:19:25 01/06/20 24 01/06/2024 CBC/C OMPLE TE BLD COUNT W/DIF F lymphocytes, absolute count 1.24 x10'3 /uL 1.07-3 .43 Not Available [facility] (Lab) [address] [place], [address], 01/06/2024 14:19:25 01/06/20 24 01/06/2024 CBC/C OMPLE TE BLD COUNT W/DIF F monocytes, absolute count 0.51 x10'3 /uL 0.29-0 .99 Not Available [facility] (Lab) [address] [place], [address], 01/06/2024 14:19:25 01/06/20 24 01/06/2024 CBC/C OMPLE TE BLD COUNT W/DIF F eosinophils, absolute count 0.01 x10'3 /uL 0.02-0 .53 low Not Available [facility] (Lab) [address] [place], [address], 01/06/2024 14:19:25 01/06/20 24 01/06/2024 CBC/C OMPLE TE BLD COUNT W/DIF F basophils, absolute count 0.03 x10'3 /uL 0.01-0 .08 Not Available [facility] (Lab) [address] [place], [address], 01/06/2024 14:19:25 01/06/20 24 01/06/2024 CBC/C OMPLE TE BLD COUNT W/DIF F immature granulocytes ,absolute 0.00 x10'3 /uL 0.00-0 .05 Not Available [facility] (Lab) [address] [place], [address], 01/06/2024 14:19:25 01/06/20 24 01/06/2024 CBC/C OMPLE TE BLD COUNT W/DIF F nucleated red blood cells 0.0 % -[address] [facility] (Lab) [address] [place], [address], 01/06/2024 14:19:25 01/06/20 24 01/06/2024 CBC/C OMPLE TE BLD COUNT W/DIF F NRBC# 0.00 x10'3 /uL Not Available [facility] (Lab) [address] [place], [address], 01/06/2024 14:19:25 01/06/20 24 01/06/2024 COMPR EHENS GLORIA METAB OLIC PANEL sodium 137 mmol/ L 137-14 5 Not Available [facility] (Lab) [address] [place], [address], 01/06/2024 15:53:09 01/06/20 24 01/06/2024 COMPR EHENS GLORIA METAB OLIC PANEL potassium 3.3 mmol/ L 3.5-5. 1 low Not Available [facility] (Lab) [address] [place], [address], 01/06/2024 15:53:09 01/06/20 24 01/06/2024 COMPR EHENS GLORIA METAB OLIC PANEL chloride 103 mmol/ L 98-107 Not Available [facility] (Lab) [address] [place], [address], 01/06/2024 15:53:09 01/06/20 24 01/06/2024 COMPR EHENS GLORIA METAB OLIC PANEL carbon dioxide 28 mmol/ L 22-30 Not Available [facility] (Lab) [address] [place], [address], 01/06/2024 15:53:09 01/06/20 24 01/06/2024 COMPR EHENS GLORIA METAB OLIC PANEL anion gap 9.3 mmol/ L 14-22 low Not Available [facility] (Lab) [address] [place], [address], 01/06/2024 15:53:09 01/06/20 24 01/06/2024 COMPR EHENS GLORIA METAB OLIC PANEL glucose 108 mg/dL 70-99 high Not Available [facility] (Lab) [address] [place], [address], 01/06/2024 15:53:09 01/06/20 24 01/06/2024 COMPR EHENS GLORIA METAB OLIC PANEL BUN 8 mg/dL 8-19 Not Available [facility] (Lab) [address] [place], [address], 01/06/2024 15:53:09 01/06/20 24 01/06/2024 COMPR EHENS GLORIA METAB OLIC PANEL creatinine 0.66 mg/dL 0.66-1 .25 Not Available [facility] (Lab) [address] [place], [address], 01/06/2024 15:53:09 01/06/20 01/06/2024 COMPR EHENS GLORIA METAB OLIC PANEL GFR >60 Refer ence Range : [place] ge GFR Healt hy Adult : >60 mL/mi n/1.7 3 m2 Chron ic Kidne y Disea se: 15-60 mL/mi n/1.7 3 m2 Kidne y Failu re: <15/m L/min /1.73 m2 www.n iddk. nih.g ov The MDRD study equat ion has not been valid ated in child lavell <18 years of age; pregn ant women ; the elder ly >85 years of age; or in some racia l or ethni c subgr oups, such as Hispa nics. Outsi de the valid ated jacey eters , estim ated GFR is less accur ate, requi ring clini pennie judgm ent on a case- by-ca se basis . Clini pennie inter preta tion for other races and ages must be made by the clini loida. The MDRD study equat ion has not been valid ated for the evalu ation of serum creat inine relat ed to nutri toma l statu s or medic ation usage . For perso ns <18 years of age, a pedia tric GFR calcu lator is avail able on the [facility] websi te: https :[email or web address] [email or web address].is[place]ell [email or web address]/hilton daley s/juso qi/gf r_cal culat or Not Available [facility] (Lab) [address] [place], [address], 01/06/2024 15:53:09 01/06/20 24 01/06/2024 COMPR EHENS GLORIA METAB OLIC PANEL alkaline phosphatase 72 U/L 38-126 Not Available [facility] (Lab) [address] [place], [address], 01/06/2024 15:53:09 01/06/20 24 01/06/2024 COMPR EHENS GLORIA METAB OLIC PANEL alanine aminotransfe rase 18 U/L 0-[address] [facility] (Lab) [address] [place], [address], 01/06/2024 15:53:09 01/06/20 24 01/06/2024 COMPR EHENS GLORIA METAB OLIC PANEL aspartate aminotransfe rase 29 U/L 15-[address] [facility] (Lab) [address] [place], [address], 01/06/2024 15:53:09 01/06/20 24 01/06/2024 COMPR EHENS GLORIA METAB OLIC PANEL bilirubin, total 0.60 mg/dL 0.20-1 .30 Not Available [facility] (Lab) [address] [place], [address], 01/06/2024 15:53:09 01/06/20 24 01/06/2024 COMPR EHENS GLORIA METAB OLIC PANEL calcium 9.1 mg/dL 8.4-10 .2 Not Available [facility] (Lab) [address] [place], [address], 01/06/2024 15:53:09 01/06/20 24 01/06/2024 COMPR EHENS GLORIA METAB OLIC PANEL total protein 7.7 g/dL 6.3-8. 2 Not Available [facility] (Lab) [address] [place], [address], 01/06/2024 15:53:09 01/06/20 24 01/06/2024 COMPR EHENS GLORIA METAB OLIC PANEL albumin 4.3 g/dL 3.4-5. 0 Not Available [facility] (Lab) [address] [place], [address], 01/06/2024 15:53:09 01/06/20 24 01/06/2024 COMPR EHENS GLORIA METAB OLIC PANEL globulin 3.4 g/dL 2.6-4. 2 Not Available [facility] (Lab) [address] [place], [address], 01/06/2024 15:53:09 01/06/20 24 01/06/2024 COMPR EHENS GLORIA METAB OLIC PANEL A/G ratio 1.3 ratio 1.0-2. 0 Not Available [facility] (Lab) [address] [place], [address], 01/06/2024 15:53:09 01/06/20 24 01/06/2024 LIPID PANEL cholesterol 117 mg/dL 140-19 9 low NIH JONEL NSUS RECOM MENDA TION FOR DONTAE STERO L: ADULT CHILD LOW RISK: <200 <170 BORDE RLINE : <200- 239 ----- HIGH RISK: >240 >200 Not Available [facility] (Lab) [address] [place], [address], 01/06/2024 15:53:19 01/06/20 24 01/06/2024 LIPID PANEL triglyceride s 55 mg/dL 0-150 NIH JONEL NSUS REPOR T RECOM MENDA TION FOR TRIGL YCERI CAYLA: ADULT CHILD LOW RISK: <150 ----- BODER LINE: 150-1 99 ----- HIGH RISK: >200 ----- Not Available [facility] (Lab) [address] [place], [address], 01/06/2024 15:53:19 01/06/20 24 01/06/2024 LIPID PANEL HDL cholesterol 48 mg/dL 40- Not Available [facility] (Lab) [address] [place], [address], 01/06/2024 15:53:19 01/06/20 24 01/06/2024 LIPID PANEL LDL cholesterol, calculated 58 mg/dL 0-130 NIH JONEL NSUS REPOR T RECOM MENDA TIONS FOR LDL: ADULT CHILD LOW RISK <130 <110 (OPTI MAL LDL) <100 ----- BORDE RLINE : 130-1 59 ----- HIGH RISK: >160 >130 A TRIGL YCERI DE RESUL T >400 INVAL IDATE S THE CALCU LATIO N FOR LDL FRACT IONAT ION - THE LDL RESUL T WILL NOT BE REPOR KYM. Not Available [facility] (Lab) [address] [place], [address], 01/06/2024 15:53:19 01/06/20 24 01/06/2024 T4 FREE free T4 1.17 NG/dL 0.78-2 .19 Not Available [facility] (Lab) [address] [place], [address], 01/06/2024 16:14:47 01/06/20 24 01/06/2024 TSH thyroid-stim ulating hormone 0.423 uIU/m L 0.465- 4.680 low Not Available [facility] (Lab) [address] [place], [address], 01/06/2024 16:27:12 01/06/20 24 01/06/2024 VITAM IN D 25-HY DROXY vd25oh 13.8 NG/mL 30-100 low Vitam in D Statu s: Defic ient: <20 ng/mL Insuf ficie nt: 20-29 ng/mL Suffi cient : 30-10 0 ng/mL Not Available [facility] (Lab) [address] [place], [address], 01/06/2024 19:42:41 01/06/20 24 01/06/2024 VITAM IN B12 (GERMAN CALLI ) vb12 588 pg/mL 239-93 1 Not Available [facility] (Lab) [address] [place], [address], 01/06/2024 20:34:59 01/06/20 24 01/06/2024 FOLAT E, SERUM /PLAS MA folate 12.7 NG/mL 2.76-2 0.0 Not Available [facility] (Lab) [address] [place], [address], 01/06/2024 20:35:05 02/15/20 24 02/15/2024 CBC/C OMPLE TE BLD COUNT W/DIF F white blood cells 6.5 x10'3 /uL 4.2-10 .8 Not Available [facility] (Lab) [address] [place], [address], 02/15/2024 17:51:17 02/15/20 24 02/15/2024 CBC/C OMPLE TE BLD COUNT W/DIF F red blood cells 3.99 x10'6 /uL 3.80-5 .20 Not Available [facility] (Lab) [address] [place], [address], 02/15/2024 17:51:17 02/15/2002/15/2024 CBC/C OMPLE TE BLD COUNT W/DIF F hemoglobin 12.3 g/dL 12.0-1 5.6 Not Available [facility] (Lab) [address] [place], [address], 02/15/2024 17:51:17 02/15/2002/15/2024 CBC/C OMPLE TE BLD COUNT W/DIF F hematocrit 37.1 % 35.7-4 5.7 Not Available [facility] (Lab) [address] [place], [address], 02/15/2024 17:51:17 02/15/2002/15/2024 CBC/C OMPLE TE BLD COUNT W/DIF F mean red cell volume 93.0 fL 82.0-9 9.0 Not Available [facility] (Lab) [address] [place], [address], 02/15/2024 17:51:17 02/15/2002/15/2024 CBC/C OMPLE TE BLD COUNT W/DIF F mean red cell hemoglobin 30.8 pg 27.0-3 3.0 Not Available [facility] (Lab) [address] [place], [address], 02/15/2024 17:51:17 02/15/20 24 02/15/2024 CBC/C OMPLE TE BLD COUNT W/DIF F mean RBC HGB concentratio n 33.2 g/dL 31.0-3 6.0 Not Available [facility] (Lab) [address] [place], [address], 02/15/2024 17:51:17 02/15/20 24 02/15/2024 CBC/C OMPLE TE BLD COUNT W/DIF F red cell distribution width 13.8 % 11.8-1 5.5 Not Available [facility] (Lab) [address] [place], [address], 02/15/2024 17:51:17 02/15/20 24 02/15/2024 CBC/C OMPLE TE BLD COUNT W/DIF F platelets 316 x10'3 /uL 150-40 0 Not Available [facility] (Lab) [address] [place], [address], 02/15/2024 17:51:17 02/15/20 24 02/15/2024 CBC/C OMPLE TE BLD COUNT W/DIF F mean platelet volume 9.8 fL 9.0-12 .4 Not Available [facility] (Lab) [address] [place], [address], 02/15/2024 17:51:17 02/15/20 24 02/15/2024 CBC/C OMPLE TE BLD COUNT W/DIF F neutrophils 36.6 % 39.0-7 2.0 low Not Available [facility] (Lab) [address] [place], [address], 02/15/2024 17:51:17 02/15/2002/15/2024 CBC/C OMPLE TE BLD COUNT W/DIF F lymphocytes 51.9 % 16.0-4 7.0 high Not Available [facility] (Lab) [address] [place], [address], 02/15/2024 17:51:17 02/15/20 24 02/15/2024 CBC/C OMPLE TE BLD COUNT W/DIF F monocytes 7.3 % 5.0-12 .0 Not Available [facility] (Lab) [address] [place], [address], 02/15/2024 17:51:17 02/15/20 24 02/15/2024 CBC/C OMPLE TE BLD COUNT W/DIF F eosinophils 2.9 % 1.0-7. 0 Not Available [facility] (Lab) [address] [place], [address], 02/15/2024 17:51:17 02/15/20 24 02/15/2024 CBC/C OMPLE TE BLD COUNT W/DIF F basophils 1.1 % 0.0-2. 0 Not Available [facility] (Lab) [address] [place], [address], 02/15/2024 17:51:17 02/15/20 24 02/15/2024 CBC/C OMPLE TE BLD COUNT W/DIF F immature granulocytes 0.2 % 0.00-0 .50 Not Available [facility] (Lab) [address] [place], [address], 02/15/2024 17:51:17 02/15/20 24 02/15/2024 CBC/C OMPLE TE BLD COUNT W/DIF F neutrophils, absolute count 2.38 x10'3 /uL 1.5-8. 0 Not Available [facility] (Lab) [address] [place], [address], 02/15/2024 17:51:17 02/15/20 24 02/15/2024 CBC/C OMPLE TE BLD COUNT W/DIF F lymphocytes, absolute count 3.36 x10'3 /uL 1.07-3 .43 Not Available [facility] (Lab) [address] [place], [address], 02/15/2024 17:51:17 02/15/20 24 02/15/2024 CBC/C OMPLE TE BLD COUNT W/DIF F monocytes, absolute count 0.47 x10'3 /uL 0.29-0 .99 Not Available [facility] (Lab) [address] [place], [address], 02/15/2024 17:51:17 02/15/20 24 02/15/2024 CBC/C OMPLE TE BLD COUNT W/DIF F eosinophils, absolute count 0.19 x10'3 /uL 0.02-0 .53 Not Available [facility] (Lab) [address] [place], [address], 02/15/2024 17:51:17 02/15/20 24 02/15/2024 CBC/C OMPLE TE BLD COUNT W/DIF F basophils, absolute count 0.07 x10'3 /uL 0.01-0 .08 Not Available [facility] (Lab) [address] [place], [address], 02/15/2024 17:51:17 02/15/20 24 02/15/2024 CBC/C OMPLE TE BLD COUNT W/DIF F immature granulocytes ,absolute 0.01 x10'3 /uL 0.00-0 .05 Not Available [facility] (Lab) [address] [place], [address], 02/15/2024 17:51:17 02/15/20 24 02/15/2024 CBC/C OMPLE TE BLD COUNT W/DIF F nucleated red blood cells 0.0 % -[address] [facility] (Lab) [address] [place], [address], 02/15/2024 17:51:17 02/15/20 24 02/15/2024 CBC/C OMPLE TE BLD COUNT W/DIF F NRBC# 0.00 x10'3 /uL Not Available [facility] (Lab) [address] [place], [address], 02/15/2024 17:51:17 02/27/20 23 11/26/2022 US, echoc ardio gram No observ ation record ed. [email or web address] [facility] [address] [place], [address], 07/18/2023 20:12:16 12/31/19 24 12/31/2023 XR, lumbo sacra l spine , 2 or 3 view No observ ation record ed. [email or web address] Not Available 2023 16:45:13 02/15/20 24 01/08/2012 polys omnog sana, diagn ostic , 6 yrs or older No observ ation record ed. BARCODE Not Available 2023 11:49:02 Result Notes None recorded. Problems Name Problem SNOMED Code Status Onset Date Resolution Date Notes Provider Name and Address Organization Details Recorded Time Goiter 1750338 Active 2021 Not Available [facility] 3 00:55:48 Obesity 058000368 Active 2021 Not Available [facility] 3 00:55:48 Essential hypertension 95257731 Active 2021 Not Available [facility] 3 00:55:48 Serum vitamin B12 below reference range 987238966 Active 2023 Rl thomas MD [address] [facility], [address] [place] [address], [place], [address] , [employer] [facility] [employer] 4 16:10:30 Vitamin D deficiency 20543793 Active 2023 Rl thomas MD [address] [facility], [facility] [address], [place], [address] , [employer] [facility] [employer] 4 16:10:36 Low back pain 168693656 Active 2023 Stephanie Vargas MA [facility], [employer] 4 12:47:49 Pulmonary hypertension 84592022 Active 2023 Heath Salomon MD [address], [place], [address] , [facility] [employer] [facility] [employer] [facility] 4 15:59:31 Dyspnea on exertion 22607576 Active 2023 Rl thomas MD [address], [place], [address] , [employer] [facility] [employer] [facility] 4 20:55:59 Intermittent dysphagia 64077646 Active 2023 Rl thomas MD [address], [place], [address] , [facility] [employer] [facility] [employer] [facility] 4 20:55:59 Obstructive sleep apnea syndrome 49459040 Active 2023 Rl thomas MD [address], [place], [address] , [employer] [facility] [employer] [facility] 4 20:55:59 Fatigue 95434013 Active 2023 Rl thomas MD [address] [facility] [address], [address], [place], [address] , [employer] [facility] [employer] [facility] 4 21:03:22 Notes:Medical History: Bruxi sm Rhinitis to multiple environmental allergens with postnasal drip Eosinophils 20/uL IgE 68 IU/mL AAT PiM_ 143 mg% Goiter Early REM onset Obesity with mod restrictive airflow impairment Mild TR RVSP 40 mmHg Hypertension EF 51% Thoracolumbar DDD Procedure History: Left knee meniscus repair 2013 Tubal ligation 2018 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 Procedures Surgical History Date Name Laterality Status Provider Name and Address Organization Details Recorded Time 8 Tubal Ligation completed Not Available [facility] 11/05/2022 13:10:32 3 Knee completed Not Available [facility] 3 13:10:32 Imaging Results None recorded. Procedure Notes None recorded. Medical Equipment None Reported. Allergies No known drug allergies Medications Name Sig Start Date Stop Date Status Note LastModified by Organization Details LastModified Time losartan 50 mg tablet TAKE 1 TABLET BY MOUTH DAILY active Not Available Not Available No t Available nifedipine ER 30 mg tablet,exte nded release 24 hr 08/18 completed Not Available Not Available Not Available benzonatate 200 mg capsule 07/08 completed Not Available Not Available Not Available prednisone 20 mg tablet TAKE 1 TABLET BY MOUTH TWICE DAILY FOR 5 DAYS 03/29 completed Not Available Not Available Not Available clindamycin HCl 150 mg capsule active Not Available Not Available Not Available metronidazo le 500 mg tablet TAKE 1 TABLET BY MOUTH TWICE DAILY 11/23 completed Not Available Not Available Not Available nifedipine ER 30 mg tablet,exte nded release Take 1 tablet every day by oral route. 08/18 completed Take Not Available Not Available Not Available carvedilol 3.125 mg tablet Take 1 tablet twice a day by oral route. 11/23 completed Not Available Not Available Not Available Lasix 20 mg tablet Take 1 tablet every day by oral route as needed. 11/23 completed Not Available Not Available Not Available diazepam 10 mg tablet TAKE 1 TABLET BY MOUTH 30 MINUTES BEFORE APPOINTME NT active Not Available Not Available No t Available amoxicillin 875 mg-potassiu m clavulanate 125 mg tablet TAKE 1 TABLET BY MOUTH TWICE DAILY active Not Available Not Available No t Available nitrofurant oin monohydrate /macrocryst als 100 mg capsule TAKE 1 CAPSULE BY MOUTH EVERY 12 HOURS 11/23 completed Not Available Not Available Not Available multivitami n 12/31 completed Not Available Not Available Not Available cholecalcif jany (vitamin D3) 1,250 mcg (50,000 unit) capsule Take 1 capsule every week by oral route. 03/29 completed Not Available Not Available Not Available potassium chloride ER 20 mEq tablet,exte nded release Take 2 tablets every day by oral route for 5 days. 03/29 completed Not Available Not Available Not Available Zepbound 2.5 mg/0.5 mL subcutaneou s pen injector INJECT 2.5 MG UNDER THE SKIN ONE DAY A WEEK active Not Available Not Available No t Available Vitals Date Recorded Body height Body mass index (BMI) Body weight Body temperature Heart rate Systolic And Diastolic Provider Name and Address Organization Details Last Updated DateTime 4 170.18 cm 43.2 kg/m2 330289. 49 g 97.5 [degF] 78 /min 122/84 mm[Hg] Linda Avina [facility] [employer] [facility] [employer] [facility] 4 16:06:42 Date Recorded Body height Body mass index (BMI) Body weight Heart rate Oxygen saturation Oxygen saturation in Arterial blood by Pulse oximetry Body temperature Systolic And Diastolic Provider Name and Address Organization Details Last Updated DateTime 4 170.18 cm 44 kg/m2 757400. 46 g 65 /min 95 % 95 % 98 [degF] 120/74 mm[Hg] Arnold Loera CMA [employer] [facility] [employer] 4 15:47:20 Date Recorded Body height Body mass index (BMI) Body weight Body temperature Heart rate Systolic And Diastolic Provider Name and Address Organization Details Last Updated DateTime 3 170.18 cm 42.9 kg/m2 680391. 31 g 97.7 [degF] 64 /min 136/86 mm[Hg] Maida Garcia Katerine [place] [employer] [facility] [employer] [facility] 3 15:30:11 Date Recorded Body height Body mass index (BMI) Body weight Body temperature Heart rate Oxygen saturation Oxygen saturation in Arterial blood by Pulse oximetry Systolic And Diastolic Provider Name and Address Organization Details Last Updated DateTime 4 170.18 cm 44.3 kg/m2 084665. 64 g 98.5 [degF] 65 /min 95 % 95 % 122/82 mm[Hg] Jody Solomon MA [place] [employer] [facility] [employer] 4 17:11:36 Date Recorded Body height Provider Name an d Address Organization Details Last Updated DateTime 04/06/2024 170.18 cm Jody Solomon MA [employer] [facility] [employer] 04/06/2024 17:07:52 Date Recorded Body height Body mass index (BMI) Body weight Body temperature Heart rate Systolic And Diastolic Provider Name and Address Organization Details Last Updated DateTime 3 170.18 cm 43.7 kg/m2 058883. 27 g 97.9 [degF] 60 /min 130/86 mm[Hg] Maida Garcia Katerine [employer] [facility] [employer] [facility] 16:13:17 Social History Question Answer Notes LastModified by Organization Details LastModified Time Tobacco Smoking Status Never Smoker Not Available [facility] 11/05/2022 13:10:27 What Is Your Level Of Caffeine Consumption? Heavy MIGRATION.0301 [id number] Information not available 11/05/2022 In The 14 Days Before Symptom Onset, Have You Had Close Contact With A Laboratory-confi rmed COVID-19 While That Case Was Ill? No MIGRATION.030 [id number] Information not available 11/05/2022 In The 14 Days Before Symptom Onset, Have You Had Close Contact With A Person Who Is Under Investigation For COVID-19 While That Person Was Ill? No MIGRATION.030 [id number] Information not available 11/05/2022 What Type Of Diet Are You Following? 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 No Information not available 12/31/2022 Have There Been Any Changes To Your Family Or Social Situation? No MIGRATION.0301 [id number] Information not available 11/05/2022 Are There Any Guns Present In Your Home? No MIGRATION.0301 [id number] Information not available 11/05/2022 Do You Have A Humidifier? No Information not available 12/31/2022 Do You Use Insect Repellent Routinely? No MIGRATION.0301 [id number] Information not available 11/05/2022 Where Do You Live? SingleLevelHouse MIGRATION.0301 [id number] Information not available 11/05/2022 Do You Have Moisture Problems In Your Home? No Information not available 12/31/2022 What Was The Date Of Your Most Recent Tobacco Screening? 03/29/2024 [email or web address] Information not available 03/29/2024 Do You Have Any Pets? Yes MIGRATION.0301 [id number] Information not available 11/05/2022 What Is Your Relationship Status? Domestic Partner MIGRATION.0301 [id number] Information not available 11/05/2022 Do You Use Your Seat Belt Or Car Seat Routinely? Yes Information not available 12/31/2022 Do You Have Smoke And Carbon Monoxide Detectors In Your Home? Yes MIGRATION.0301 [id number] Information not available 11/05/2022 Are You Passively Exposed To Smoke? Yes MIGRATION.0301 [id number] Information not available 11/05/2022 Are There Any Smokers In Your House? Yes MIGRATION.0301 [id number] Information not available 11/05/2022 Do You Use Sunscreen Routinely? No MIGRATION.0301 [id number] Information not available 11/05/2022 Has Tobacco Cessation Counseling Been Provided? No MIGRATION.0301 [id number] Information not available 11/05/2022 Have You Recently Traveled Abroad? No MIGRATION.0301 111447 Information not available 11/05/2022 Do You Have Any Dietary Restrictions? No MIGRATION.0301 [id number] Information not available 11/05/2022 Sex: Unknown Functional Status Question Answer Note LastModified by DrDoctor Details LastModified Time Do you use any illicit or recreational drugs? No MIGRATION.[id number] 4940 Information not available 11/05/2022 Do you or have you ever used any other forms of tobacco or nicotine? No MIGRATION.039880 3506 Information not available 11/05/2022 What is your level of alcohol consumption? Occasional MIGRATION.158437 6444 Information not available 11/05/2022 Are you currently employed? Yes [email or web address] Information not available 03/29/2024 What is your occupation? [employer] ([employer] MIGRATION.648075 9061 Information not available 11/05/2022 What is your exercise level? None MIGRATION.661008 0656 Information not available 11/05/2022 Mental Status Question Answer Note LastModified by DrDoctor Details LastModified Time Do you feel stressed (tense, restless, nervous, or anxious, or unable to sleep at night)? [id number] work MIGRATION.[id number] 6 Information not available 11/05/2022 Family History Relationship Description Onset Age of this Age Resolved Age Notes LastModified by Organization Details LastModified Time Paternal Grandmother Diabetes mellitus MIGRATION.966 [id number] Not available 11/05/2022 13:10:33 Paternal Grandmother Hypertensive disorder MIGRATION.055 [id number] Not available 11/05/2022 13:10:33 Brother Diabetes mellitus MIGRATION.992 [id number] Not available 11/05/2022 13:10:33 Brother Glaucoma MIGRATION.932 [id number] Not available 11/05/2022 13:10:33 Brother Kidney disease MIGRATION.314 [id number] Not available 11/05/2022 13:10:33 Brother Hypertensive disorder MIGRATION.530 [id number] Not available 11/05/2022 13:10:33 Father Glaucoma MIGRATION.650 [id number] Not available 11/05/2022 13:10:33 Father Hypertensive disorder MIGRATION.291 [id number] Not available 11/05/2022 13:10:33 Mother Rheumatism MIGRATION.142 [id number] Not available 11/05/2022 13:10:33 Mother Hypertensive disorder MIGRATION.868 [id number] Not available 11/05/2022 13:10:33 Maternal Grandmother Gout MIGRATION.967 [id number] Not available 11/05/2022 13:10:33 Maternal Grandmother Congestive heart failure [email or web address] Not available 2022 11:27:55 Mother Congestive heart failure [email or web address] Not available 2022 11:28:03 Medical History Condition Response HEADACHES/MIGRAINES Y OBESITY Y HYPERTENSION Y Gynecological History Statement/Question Response How many live births 2 Date of Last Pap Current Control Method Tubal Ligat ion Date of Last Colonoscopy Date of Last Mammogram Date of LMP 03/19/2024 Obstetrics History GPAL:G 2 P 2 0 0 2 Type Value Multiple Births 0 Full Term 2 Induced 0 Spontaneous 0 Premature 0 Living 2 Ectopics 0 Total 2 Immunizations Vaccine Type Date Status Note Provider Nam e and Address Organization Details Recorded Time Influenza, split virus, quadrivalent, PF 07/08/2022 completed Not Available [facility] Past Encounters Encounter ID Performer Location Encounter Start Date Encounter Closed Date Diagnosis/Indication Diagnosis SNOMED-CT Code Diagnosis ICD10 Code Diagnosis IMO Codes Diagnosis Note [id number] En Covington MD [facility] Internal Med [facility] [address] [facility] [address] [place] [address] 07/08/2022 00:00:00 07/08/2022 22:40:34 [id number] En Covington MD [facility] Internal Med [facility] [address] [address] 10/20/2022 00:00:00 10/26/2022 20:44:52 [id number] Heath Salomon MD [facility] Pulmonolo gy [place] [phone] 12/31/2022 10:41:49 01/01/2023 08:24:28 Dyspnea on exertion 72642591 R06.09 R05.9 T78.40XA D89.9 I51.7 [id number] En Covington MD [facility] Internal Med [address] [address] 02/26/2023 15:06:09 02/26/2023 16:00:46 Edema 537068062 R60.9 Snoring 21926198 R06.83 Essential hypertension 74727327 I10 [id number] Rl thomas MD [facility] Internal Med [place] [address] 11/24/2023 15:56:33 11/24/2023 16:28:35 Screening - NAD 133779802 Z13.9 PAP: get this done Get yearly flu shotGet Tdap if not doneCan do COVID 19 vaccine and its boosters RTC in 4 monthsDo labs, ER if worse, she did verbalize her understand ing of the above Dyspnea on exertion 60[address] R06[address] Salomon 12/31/2022 , needs a f/u apt Essential hypertension 81772583 I10 On losartan 50mg dailyUsed to be on lasix for pedal edemaGet labs Gynecologi c examination 91258542 Z01.419 Serum sarah min B12 below reference range 241558557 R79.89 Vitamin D deficiency 347 97631 E55.9 Goiter 7405402 E04.9 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, will get US thyroid and labs Intermitte nt dysphagia 65110869 R13.19 Intermitte nt, feels that she has to drink water to swallow, will get an EGD done, also get an US thyroid as a enlarged goiter may cause this also Obstructiv e sleep apnea syndrome 87218544 G47.33 Excessive snoring, will refer to Dr Salomon Obesity 239690620 E66.9 Get US thyroid as she may need to be on GLP-1 [id number] Heath Salomon MD [facility] Pulmon[facility] [address] [address] 02/15/2024 15:35:48 02/16/2024 08:18:54 Dyspnea on exertion 56174955 R06.09 R05.9 T78.40XA I51.7 Pulmonary hypertension 24228799 I27.20 I27.24 Sleep apnea 68828493 G47 .30 G47.36 G47.61 G47.33 [id number] Rl thomas MD [facility] Internal Med [facility] [address] [place] [address] 03/29/2024 17:02:32 03/29/2024 17:41:28 Screening - NAD 406062838 Z13.9 PAP: get this done Get yearly flu shotGet Tdap if not doneCan do COVID 19 vaccine and its boosters RTC in 2 weeks for zepbound teaching 03/29/2024 OVRTC in 3 monthsDo labs, ER if worse, she did verbalize her understand ing of the above Dyspnea on exertion [address] Salomon 02/15/2024 , needs a f/u apt Essential hypertension 40978662 I10 On losartan 50mg dailyUsed to be on lasix for pedal edemaGet labs Gynecologi c examination 76660152 Z01.419 Serum sarah min B12 below reference range 254810714 R79.89 Vitamin D deficiency 347 55367 E55.9 Goiter 3930126 E04.9 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, will get US thyroid and labs US thyroid 10/20/2022 : Dr Covington ordered Intermitte nt dysphagia 76477393 R13.19 Intermitte nt, feels that she has to drink water to swallow, will get an EGD done, also get an US thyroid as a enlarged goiter may cause this also Obstructiv e sleep apnea syndrome 58613313 G47.33 Excessive snoring, will refer to Dr Umm Salomon 02/15/2024 Obesity 536512495 E66.9 Get US thyroid as she may need to be on GLP-1Denie s any MEN2, MCT or parathyroi d, or pancreatic symptomsWi ll get on Zepbound once US thyroid and labs are done Fatigue 29274665 R53.83 Dr Shannon Muhammad 11/10/2023 , ECHO done EF 54%, no more cardiac w/u, could be AGUSTÍN, vitamin defecienci esBeta jazmine stopped, started on losartan 50mg daily Screening mammography 24 886474 Z12.31 [id number] Rl thomas MD [facility] Internal Med [facility] [address] [facility] [place] [address] 04/06/2024 17:03:13 10/03/2024 14:45:18 Health Concerns Section Related Observation LastModified by Organization Detai ls LastModified Time None Recorded Concern Status LastModified by Organization Details LastModified Time None Recorded Advance Directives Directive None Recorded Payers Insurance Date Sequence Insurance Name Policy Number Policy Shearer Covered Member ID Shearer Member ID Guarantor Name 06/25/2024 1 [facility] [id number] Marcy Conley [id number] Marcy Conley Notes Date Note Type Note Provider Name and Address Organization Details Recorded Time 02/26/2023 text/html Occasionally some edemaStill working with PulmonaryBlood pressure reasonably controlledSome problems with snoring En Covington MD [address], [address] [address], [place], [address], [employer] 03/10/2023 19:07:00 11/24/2023 text/html OV 11/24/2023:Here to establish care Present Hx:HTNObesity Here to discuss above, she has no recent labs, states that she would like to discuss treatment for obesity and also get an US for the thyroid as she may have a 'goiter', she has also noted some dysphagia, and excessive snoring Rl Matt MD [address] [facility] [address], [place], [address], [employer] 11/24/2023 16:54:58 02/15/2024 text/html Primary care/Referring provider: Rl Matt MD Patient is here to go over shortness of breath evaluation/management. Initial development of shortness of breath: uration of shortness of breath: 2 yearsCondition of shortness of breath: stableTiming of shortness of breath: noneFrequency: every hourLimits activities: yesAggravating factors: walking, going up steps, doing laundry, talkingAlleviating factors: rest Modified [employer] Mcc[employer]ory (mMRC) Dyspnea Scale - Grade 2Grade 0 I only get breathless with strenuous exercise .Grade 1 I get short of breath when hurrying on the level or walking up a slight hill .Grade 2 I walk slower than people of the same age on the level because of breathlessness or have to stop for breath when walking at my own pace on the level .Grade 3 I stop for breath after walking about 100 yards or after a few minutes on the level .Grade 4 I am too breathless to leave the house or I am breathless when dressing . Treatment history:None Other symptoms:Drooling: noDysarthria: noNeck pain: noOdynophagia: noDysphagia: yesWeak mastication: noFacial weakness: noNasal speech: noProtruding tongue: noProductive cough: noWheezing: noChest tightness: yesOrthopnea: 3-pillowFrequent throat clearing or swallowing: noPalpitations: noHeartburn: noEdema: yes Environmental exposures:Nicotine smoke: noPaint: noDye: noDust mites: yesMold: noDamp basement: noWood burning stove: noAnimal dander: dogCockroaches: noPollen: yesArsenic: noAsbestos: noBeryllium: noCadmium: noChromium: noCoal smoke: noDiesel fumes: noNickel: noSilica: noSoot: no During the [facility] diagnostic sleep study on 01/08/12 snoring = mild to moderate, sleep onset = 7 minutes, REM onset = 69.5 minutes, sleep efficiency = 91%, REM sleep = 22%, supine sleep = 2%, AHI = 0.0, PLMI = 0.0. At home, the patient sleeps from 12 am to 7 am and wakes up with an alarm. Snoring: moderate, since . Snorting: no Choking: no Coughing: no Gasping: no Gagging: no Sighing: no Witnessed apnea: yes Twitching or jerking of leg(s), arm(s), body, head: yes Teeth grinding: yes Teeth clenching: yes Sleeptalking: no Sleepwalking: no Sleep crying: no Bedwetting: no Tongue/lip/gum/cheek biting: no Sleeping with open mouth: yes Sleep paralysis: no Hypnagogic hallucinations: no Hypnopompic hallucinations: no Vivid dreams: yes Difficulty with sleep onset: no Difficulty with sleep maintenance: yes Sleep interruptions: nocturia x 1 Patient wakes up with: fatigue, xerostomia, sore throat, hoarse voice, headaches, jaw pain Daytime cataplexy: no Morning hypersomnolence: no Afternoon hypersomnolence: yes Caffeine sources in diet: tea 1 glass per day, soda 2.5 bottles/cans per day, chocolate 1 candy bar per day Associated medical and psychiatric conditions: Congestive heart failure: no Coronary artery disease: no Myocardial infarction: no Hypertension: yes Stroke: no Bronchial asthma: no Chronic obstructive pulmonary disease: no Depression: no Bipolar disorder: no Anxiety: no Panic disorder: no Posttraumatic stress disorder: no Attention deficit and hyperactivity disorder: no Obsessive Compulsive disorder: no Schizophrenia: no Schizoaffective disorder: no Personality disorder: no Chronic analgesic use: no Chronic sedative/hypnotic use: no EPWORTH SLEEPINESS SCALE (ESS) CHANCE OF DOZING SCORE0 = would never doze1 = slight chance of dozing2 = moderate chance of dozing3 = high chance of dozing SITUATION AND CHANCE OF DOZINGSitting and reading - 2Watching television - 0Sitting inactive in a public place (e.g. a theater or meeting) - 3As a passenger in a car for an hour without a break - 2Lying down to rest in the afternoon when circumstances permit - 2Sitting and talking to someone - 0Sitting quietly after lunch without alcohol - 0In a car, while stopped for a few minutes in the traffic - 0TOTAL SCORE 9Subjectively, patient has a moderate chance of dozing. Heath Salomon MD [address], [phone], [employer] 02/15/2024 16:28:30 03/29/2024 text/html OV 11/24/2023:Here to establish care Present Hx:HTNObesity Here to discuss above, she has no recent labs, states that she would like to discuss treatment for obesity and also get an US for the thyroid as she may have a 'goiter', she has also noted some dysphagia, and excessive snoring OV 03/29/2024:Here for her f/u apt, she feels well today, no new labs noted Rl Matt MD [address], [facility] [address], [place], [address], [facility] 03/29/2024 17:42:05 04/06/2024 text/html OV 11/24/2023:Here to establish care Present Hx:HTNObesity Here to discuss above, she has no recent labs, states that she would like to discuss treatment for obesity and also get an US for the thyroid as she may have a 'goiter', she has also noted some dysphagia, and excessive snoring OV 03/29/2024:Here for her f/u apt, she feels well today, no new labs noted Bouchra sotomayor, [employer] [employer] 10/03/2024 14:45:17 OBGyn Episode No OBEpisode recorded.
--- OUTSIDE RECORDS SUMMARY | 2025-06-24 11:56 | XMS_ITS | Clinical Summary ---
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 Name Role Phone Unavailable Primary Care Provider Unavailabl e Social History Tobacco Use Types Packs/Day Years Used Date Smoking Tobacco: Never Assessed Comments Unknown Sex and Gender Information Value Date Recorded Sex Assigned at Not on file Legal Sex Female 7:39 PM CDT Gender Identity Not on file Sexual Orientation Not on file Plan of Treatment Health Maintenance Due Date Last Done Comments Cervical Cancer Screening Pa p Smear (Age 30 to 64) Every 3 Years 1979 Colorectal Cancer Screening Colonoscopy (10 Years) 1979 Annual Physical 1982 Hepatitis C 1997 DTaP, Tdap and Td Vaccines ( 1 - Tdap) 1998 Hepatitis B Vaccines (1 of 3 - 19+ 3-dose series) 1998 HPV Vaccines (1 - 3-dose SCD M series) 2006 Cervical Cancer Screening Pa p with HPV Testing (Age 30 to 64) Every 5 Years 2009 Cervical Cancer Screening with HPV 2009 Mammogram Screening 2019 COVID-19 Vaccine (2023-2 5 season) 2025 Influenza Adult (#1) 2025 Meningococcal B Vaccine Aged Out No l onger eligible based on patient's age to complete this topic Meningococcal Vaccine Aged Out No martha kenzie eligible based on patient's age to complete this topic Pneumococcal Vaccine: Pediat rics (0 to 5 Years) and At-Risk Patients (6 to 49 Years) Aged Out No longer eligible b ased on patient's age to complete this topic RSV Immunizations Under 20 Months Aged Out No longer eligible based on patient's age to complete this topic
--- OUTSIDE RECORDS SUMMARY | 2025-06-24 11:56 | XMS_ITS | Clinical Summary ---
Author Organization [facility] Address [address] [place] [phone] Phone Care Team Providers Care Legal Billing Specialist Name Role Phone Unavailable Primary Care Provider Unavailabl e Social History Tobacco Use Types Packs/Day Years Used Date Smoking Tobacco: Never Assessed Comments Unknown Sex and Gender Information Value Date Recorded Sex Assigned at Not on file Legal Sex Female 10:34 AM CDT Gender Identity Not on file Sexual Orientation Not on file Plan of Treatment Health Maintenance Due Date Last Done Comments DTAP/TDAP/TD VACCINES (1 - Tdap) 1998 HEPATITIS B VACCINES (1 of 3 - 19+ 3-dose series) 10/08 HPV/Cotest (21-29) 2000 HPV VACCINES (1 - 3-dose SCDM series) 2006 CERVICAL CANCER SCREENING 2009 HPV/Cotest (30-65) 2009 PAP SMEAR 2009 BREAST CANCER SCREENING 2019 COLORECTAL SCREENING 2024 Colorectal Cancer Screening 2024 FIT-DNA Q 3 years 2024 FIT/FOBT Q 1 year 2024 Flex Sig/CT Colonography Q 5 years 2024 INFLUENZA VACCINE (#1) 2025
--- NOTE | 2025-06-24 12:09 | ECG_ITS ---
Test Date: 2025-06-24 12:41:22 Measurements Intervals [place] Rate: 63 P: 9 [place]: 146 QRS: -14 QRSD: 92 T: 1 QT: 405 QTc: 416 Interpretive Statements SINUS RHYTHM VOLTAGE CRITERIA FOR LVH POSSIBLE ANTERIOR MYOCARDIAL INFARCTION , OF INDETERMINATE AGE BORDERLINE T WAVE ABNORMALITY- INFERIOR LEADS ABNORMAL ECG No previous ECG available for comparison Electronically Signed On 06-24-2025 13:39:40 CDT by Derrick Navarro D.O.
== END 2025-06-24 11:50 | disposition home or self-care (01) ==
LOC: ANHLAB 11:52
PROVIDERS: PCP Internal Medicine; Visit Provider Obstetrics & Gynecology
DX: D25.9 Leiomyoma of uterus, unspecified (principal); I10 Essential (primary) hypertension; Z01.818 Encounter for other preprocedural examination
CPT/HCPCS: 36415; 86850; 86900; 86901; 93005

== ENCOUNTER 2025-07-03 01:55 | Day surgery (SDC) | payer BC, SELFPAY ==
--- OUTSIDE RECORDS SUMMARY | 2003-11-06 03:00 | XMS_ITS | Continuity of Care Document ---
Author Organization [facility] Address [address] [place] [address] Phone Care Team Providers Care Production Operations Engineer Name Role Phone Kashif Benoit Unavailable Unavailable Advance Directives Directive Yes / No Effective Date File Name No Information Encounters Encounter Description Practice Location Reason(s) For Visit Diagnoses Date Provider Providers Copied on Encounter [facility], [address], [place], [place], [id number], [place] tel:[phone] [facility] [place] No Information Mar-0 1-200 4 Doisy Edward. [address] [facility] [place] , [address], [place], [address], [place]. tel:[phone] Family History Family Member Type Diagnosis Age At Onset No Information Payers Payer name Insurance type Covered alliance party ID Authoriza tion(s) [facility] Out Of State [id number] Social History Type Description Quantity Date Captured [...]
--- OUTSIDE RECORDS SUMMARY | 2024-06-25 04:00 | XMS_ITS ---
Author Organization [facility] Address [address] [place] [address] Care Team Providers Care Community Relations Coordinator Name Role Phone Migration, Provider Unavailable Unavailable REASON FOR VISIT EMR-Gianluca Encounters Encounter Location Date Provider Diagnosis [facility] [address] [facility] [place] [id number] 06/25/2024 Prov ider Migration Plan Of Treatment No Information Progress Notes * Marcy BLANCODOB:[birth year] (44 yo F)Acc No.[id number]:06/25/2024 Patient: Alvino Marcy MACIEL :1980 A ge:43 Y S ex:Female Address:[address] [place] [address], [address] Subjective: * Chief Complaints: * E MR-Gianluca * * Date:
--- OUTSIDE RECORDS SUMMARY | 2024-06-26 04:00 | XMS_ITS ---
Author Organization [facility] Address [address] [place] [address] Care Team Providers Care Counting Machine Operator Name Role Phone Migration, Provider Unavailable Unavailable [...] smoker Encounters Encounter Location Date Provider Diagnosis [facility] [address] [place], [place] [id number] 06/26/2024 Prov ider Migration Plan Of Treatment No Information Progress Notes * Marcy PALOMODOB:[birth year] (44 yo F)Acc No.[id number]:06/26/2024 Patient: Alvino GONSALEZFRENCH Marcy :1980 A ge:43 Y S ex:Female Address:[address] [place] [address], [address] Subjective: * Chief Complaints: * E MR-Gianluca [...]
--- NOTE | 2025-06-22 14:36 | SUR.PREOP ---
[facility] has started construction of its new state of the art ER which will open Spring 2026. With this, we anticipate parking may be a challenge for some our surgical patients and families. Parking spaces are limited but are available for all Surgical, obstetrics, and ER patients sharing this lot. If you arrive and find you are having a hard time finding a parking space, please note that we understand the challenges, please drive around the hospital and park near Hospital Entrance 1. When you enter this entrance, you can ask a volunteer to direct or take you back to the surgical waiting area to check in. We appreciate everyone?s understanding of these expected challenges while we build for your future. Report to the Outpatient Waiting Room, entrance under the green pavilion located off [address], at time _6am__ on date _07/03/25__. Planned Procedure Time: _730am__.? Time changes happen often and if your time is changed the preop area will call you the afternoon before. - You and your visitor will be asked to self-screen and do not enter if you have any COVID symptoms. Please call surgeon if you need to reschedule. - A mask is optional within the hospital at this time. Patients may have clear liquids (water, carbonated beverages, clear teas, apple juice) until 3 hours prior to surgery with a maximum of 20 ounces. - No food from midnight until time of surgery and no smoking, or chewing tobacco (or any form of nicotine). No chewing gum, candy or mints. Take only the following medications with a SIP of water on the morning of surgery: ____None____ DO NOT STOP ANY OF YOUR OTHER PRESCRIPTION MEDICATIONS PRIOR TO SURGERY EXCEPT THE FOLLOWING Hold all vitamins and supplements for 3 days per anesthesiologist. Medications to discontinue per physician n/a Date to take last dose___n/a Please no make-up, nail mohawk, hairspray, perfume, deodorant, or body powder the day of surgery.? No jewelry (including any body piercings) or valuables the day of surgery, leave them at home.? Please take a shower or bath the night before, or the morning of, surgery with an antibacterial soap.? Wear comfortable, loose fitting clothing.? - Jewelry must be removed prior to entering the operating room.? Rings and piercings that are not removed may be cut off. - The hospital will not accept responsibility for valuables.? - Please leave all valuables, including medications, at home the day of surgery. If you are going home after surgery, a licensed electric screw driver operator must drive you home.? - NO public transportation without another adult if you receive anesthesia. - We recommend that an adult stay with you for 24 hours following discharge. - We also recommend that you do not drive, make important decision, drink alcoholic beverages, or take any drugs that were not prescribed by your health care provider for at least 24 hours after your discharge time. Follow any additional instructions given to you from your surgeon. Telephone instructions given to _Marcy___and asked if any additional questions and then verbalized understanding. Patient advised to call surgeon office or pre surgery nurse liaison [phone] if any additional questions.
[2025-06-22 14:41] VITALS: BMI 43.9
[2025-07-03] VITALS (10 sets, daily range): BP systolic 124–163; BP diastolic 80–99; PULSE 70–92; RESP 12–20; TEMP 36.1–37.1; O2SAT 96–100
--- OUTSIDE RECORDS SUMMARY | 2025-07-03 01:58 | XMS_ITS | Clinical Summary ---
Author Organization [facility] Address [address] [place] [id number] Care Team Providers Care Marketing Operations Consultant Name Role Phone Unavailable Primary Care Provider [...] HPV 2009 Mammogram Screening 2019 COVID-19 Vaccine (2024-2 6 season) 2025 Influenza Adult (#1) 2025 Hepatitis A Vaccines Aged Out No long er eligible based on patient's age to complete this topic Meningococcal B Vaccine Aged Out No l [...]
--- OUTSIDE RECORDS SUMMARY | 2025-07-03 01:58 | XMS_ITS | Patient Health Record ---
Author Organization [facility] Address [address] [place] [address] Support Name Relationship Address Phone Marcy Palomo Guarantor Unknown [phone] Reason For Referral No Information Social History [...] Notes Problem Obesity due to excess calories (267586560) Other obesity due to excess calories (E66.09) 06/03/2016 Active confirmed Problem Alopecia areata (54787740) Alopecia areata, unspecified (L63.9) 06/03/2016 Active confirmed Problem Hirsutism (196783854) Hirsutism (L68.0) 06/03/2016 Active confirmed Problem Body mass index 40+ - severely obese (526486578) Body mass index (BMI) 40.0-44.9, adult (Z68.41) 06/03/2016 Active confirmed Plan Of Treatment No Information Medical (General) History Surgical History Surgery Date(Month/Year) knee surgery ,notes : left
--- OUTSIDE RECORDS SUMMARY | 2025-07-03 01:58 | XMS_ITS | Clinical Summary ---
Author Organization 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
--- OUTSIDE RECORDS SUMMARY | 2025-07-03 01:58 | XMS_ITS | Clinical Summary ---
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
--- OUTSIDE RECORDS SUMMARY | 2025-07-03 01:58 | XMS_ITS | Data Portability ---
Author Organization [facility], Main Office Address [address] [place] [address] Assessment Encounter Date Assessment Date Assessment LastModified by Organization Details LastModified Time 02/26/2023 02/26/2023 Lasix 20 mg neetu y p.r.n. for edema continue antihypertensive therapy continue pulmonary consult get a sleep study see me in 4 months ultrasound of neck reviewed recommended by Radiology at this time not to pursue any FNA will monitor it has not changed in size in several years [email or web address] Not available 03/10/2023 19:06:44 02/15/2024 02/15/2024 Assessment: Dyspnea AGUSTÍN Pulmonary hypertension (mild TR, RVSP 40 mmHg) Plan: The following were reviewed and explained to the patient: Chest 2 views 11/17/22 no acute process, borderline enlarged heart PFT 11/17/22 nl FEV1/FVC, FEV1 2.50 L (101%), TLC 3.89 L (69%), DLCO 62%, DLCO/VA 122% [facility] diagnostic sleep study 01/08/12 snoring = mild [...] at the [facility] [employer] [facility] for further [...] 25-hydroxy, total, serum 2023 024 [email or web address] 6 [facility] (Lab), [address] [place], [address], 5 09:18:41 CMP, serum or plasma 2023 [email or web address] [place] [address] (Lab), [address] [place], [address], 5 09:18:41 CBC w/ auto diff 2023 [email or web address] [place] [address] (Lab), [address] [place], [address], 5 09:18:41 lipid panel, serum 2023 [email or web address] (Lab), [address] [place], [address], 5 09:18:41 T4, free, serum 2023 024 [email or web address] (Lab), [address] [place], [address], 5 09:18:41 TSH, serum or plasma [email or web address] (Lab), [address] [place], [address], 5 09:18:42 vitamin B12 + folate, serum or blood [address] (Lab), [address] [place], [address], 5 09:18:41 scleroderma (SCL-70) autoantibod ies, serum [address] (Lab), [address] [place], [address], 4 09:00:23 BERNARDO (antinuclea r antibodies) screen, serum [address] (Lab), [address] [place], [address], 4 09:00:23 anca panel, serum [address] (Lab), [address] [place], [address], 4 09:00:23 rf (rheumatoid factor), serum [email or web address] [email or web address] 82 [facility] (Lab), [address] [place], [address], 4 09:00:23 HIV (1+2) Ab screen, serum 2023 024 [facility] (Lab), [address] [place], [address], 4 19:09:37 vitamin D, 25-hydroxy, total, serum 2023 024 [email or web address] 6 [facility] (Lab), [address] [place], [address], 4 09:42:45 CMP, serum or plasma 2023 024 [facility] (Lab), [address] [place], [address], 4 15:53:10 CBC w/ auto diff 2023 024 [facility] (Lab), [address] [place], [address], 4 14:19:25 lipid panel, serum 2023 024 [facility] (Lab), [address] [place], [address], 4 15:53:19 T4, free, serum 2023 024 [facility] (Lab), [address] [place], [address], 4 16:14:47 TSH, serum or plasma 2023 024 [facility] (Lab), [address] [place], [address], 4 16:27:12 vitamin B12 + folate, serum or blood 2023 024 [email or web address] 6 [facility] ([facility]), [address] [place], [address], 4 09:42:45 Referral obstetricia n and gynecologis t referral 2023 024 [email or web address] Hoskins MD, [address] [facility] [address], [place], [address], 5 11:27:[address] referral 2023 024 [email or web address] 6 Heath Salomon MD, [address] [place], [address], 4 11:32:22 EGD referral 2023 024 randy Ricci MD, [address], [address], [place], [address], 5 11:27:[address] referral 2023 024 randy Salomon MD, [address] [place], [address], 4 09:03:53 obstetricia n and gynecologis t referral 2023 024 randy Hoskins MD, [address] [facility] [address], [place], [address], 4 10:17:49 EGD referral 2023 024 randy Ricci MD, [address], [address], [place], [address], 5 10:54:46 Procedures polysomnogr aphy, diagnostic (PROC) 2022 023 cyahl [facility], [address] [place], [address], 3 10:14:34 Surgeries None recorded. Imaging MAMMO, screening, bilateral [address] ([facility]), [address] [place], [address], 4 12:34:01 US, thyroid [address] ([facility]), [address] [place], [address], 4 12:34:00 polysomnogr am, diagnostic, 6 yrs or older - NEW AUTH: approved [id number] 03/03/2024 - 05/01/20242023 024 [facility], [address] [place], [address], 5 18:08:09 NM, lung scan, ventilation /perfusion - no auth required [address] ([facility]), [address] [place], [address], 4 08:24:54 US, thyroid [address] ([facility]), [address] [place], [address], 4 16:28:30 Medication Orders Lasix 20 mg tablet 2022 023 margarita mccarthy [id number], [address] [place], [place], [id number], 4 16:09:38 Patient TargetsNo targets recorded. Patient Instructions Encounter Date Encounter Id Patient Instructions Last Modified By Organization Details Last Modified Time 02/15/2024 [id number] methacholine challenge* - no auth required [email or web address] Not available 02/23/2024 08:24:47 Reason for Referral Exhaust Tender And Gynecologis t Referral for Gynecologic examination Referring Physician: Rl Matt [facility], Encounter Date: 11/24/2023 EGD Referral for Intermitten t dysphagia Referring Physician: Rl Matt [facility], Encounter Date: 11/24/2023 Platinum Smith Referral for O bstructive sleep apnea syndrome Referring Physician: Rl Matt [facility], Encounter Date: 11/24/2023 Exhaust Tender And Gynecologis t Referral for Gynecologic examination Referring Physician: Rl Matt [facility], Encounter Date: 03/29/2024 EGD Referral for Intermitten t dysphagia Referring Physician: Rl Matt [facility], Encounter Date: 03/29/2024 Platinum Smith Referral for D yspnea on exertion Referring Physician: Rl Matt [facility], Encounter Date: 03/29/2024 Results Created Date Observation Date Name Description Value Unit Range Abnormal Flag Note LastModifiedBy Organization Detail LastModifiedTime 01/06/20 24 01/06/2024 CBC/C OMPLE TE BLD COUNT W/DIF F white blood cells 3.4 x10'3 /uL 4.2-10 .8 low Not Available [facility] (Lab) [address] [place], [address], 01/06/2024 14:19:25 01/06/20 24 01/06/2024 CBC/C OMPLE TE BLD COUNT W/DIF F red blood cells 4.14 x10'6 /uL 3.80-5 .20 Not Available [facility] (Lab) [address] [place], [address], 01/06/2024 14:19:25 01/06/20 24 01/06/2024 CBC/C OMPLE TE BLD COUNT W/DIF F hemoglobin 12.9 g/dL 12.0-1 5.6 Not Available [facility] (Lab) [address] [place], [address], 01/06/2024 14:19:25 01/06/20 24 01/06/2024 CBC/C OMPLE TE BLD COUNT W/DIF F hematocrit 37.5 % 35.7-4 5.7 Not Available [facility] (Lab) [address] [place], [address], 01/06/2024 14:19:25 01/06/20 24 01/06/2024 CBC/C OMPLE TE BLD COUNT W/DIF F mean red cell volume 90.6 fL 82.0-9 9.0 Not Available [facility] (Lab) [address] [place], [address], 01/06/2024 14:19:25 01/06/20 24 01/06/2024 CBC/C OMPLE TE BLD COUNT W/DIF F mean red cell hemoglobin 31.2 pg 27.0-3 3.0 Not Available [facility] (Lab) [address] [place], [address], 01/06/2024 14:19:25 01/06/20 24 01/06/2024 CBC/C OMPLE TE BLD COUNT W/DIF F mean RBC HGB concentratio n 34.4 g/dL 31.0-3 6.0 Not Available [facility] (Lab) [address] [place], [address], 01/06/2024 14:19:25 01/06/20 24 01/06/2024 CBC/C OMPLE TE BLD COUNT W/DIF F red cell distribution width 13.2 % 11.8-1 5.5 Not Available [facility] (Lab) [address] [place], [address], 01/06/2024 14:19:25 01/06/20 24 01/06/2024 CBC/C OMPLE TE BLD COUNT W/DIF F platelets 302 x10'3 /uL 150-40 0 Not Available [facility] (Lab) [address] [place], [address], 01/06/2024 14:19:25 01/06/20 24 01/06/2024 CBC/C OMPLE TE BLD COUNT W/DIF F mean platelet volume 9.9 fL 9.0-12 .4 Not Available [facility] (Lab) [address] [place], [address], 01/06/2024 14:19:25 01/06/20 24 01/06/2024 CBC/C OMPLE TE BLD COUNT W/DIF F neutrophils 47.6 % 39.0-7 2.0 Not Available [facility] (Lab) [address] [place], [address], 01/06/2024 14:19:25 01/06/20 24 01/06/2024 CBC/C OMPLE TE BLD COUNT W/DIF F lymphocytes 36.3 % 16.0-4 7.0 Not Available [facility] (Lab) [address] [place], [address], 01/06/2024 14:19:25 01/06/20 24 01/06/2024 CBC/C OMPLE TE BLD COUNT W/DIF F monocytes 14.9 % 5.0-12 .0 high Not Available [facility] (Lab) [address] [place], [address], 01/06/2024 14:19:25 01/06/20 24 01/06/2024 CBC/C OMPLE TE BLD COUNT W/DIF F eosinophils 0.3 % 1.0-7. 0 low Not Available [facility] (Lab) [address] [place], [address], 01/06/2024 14:19:25 01/06/20 24 01/06/2024 CBC/C OMPLE TE BLD COUNT W/DIF F basophils 0.9 % 0.0-2. 0 Not Available [facility] (Lab) [address] [place], [address], 01/06/2024 14:19:25 01/06/20 24 01/06/2024 CBC/C OMPLE TE BLD COUNT W/DIF F immature granulocytes 0.0 % 0.00-0 .50 Not Available [facility] (Lab) [address] [place], [address], 01/06/2024 14:19:25 01/06/20 24 01/06/2024 CBC/C OMPLE TE BLD COUNT W/DIF F neutrophils, absolute count 1.63 x10'3 /uL 1.5-8. 0 Not Available [facility] (Lab) [address] [place], [address], 01/06/2024 14:19:25 01/06/20 24 01/06/2024 CBC/C OMPLE TE BLD COUNT W/DIF F lymphocytes, absolute count 1.24 x10'3 /uL 1.07-3 .43 Not Available [facility] (Lab) [address] [place], [address], 01/06/2024 14:19:25 01/06/20 24 01/06/2024 CBC/C OMPLE TE BLD COUNT W/DIF F monocytes, absolute count 0.51 x10'3 /uL 0.29-0 .99 Not Available [facility] (Lab) [address] [place], [address], 01/06/2024 14:19:25 01/06/20 24 01/06/2024 CBC/C OMPLE TE BLD COUNT W/DIF F eosinophils, absolute count 0.01 x10'3 /uL 0.02-0 .53 low Not Available [facility] (Lab) [address] [place], [address], 01/06/2024 14:19:25 01/06/20 24 01/06/2024 CBC/C OMPLE TE BLD COUNT W/DIF F basophils, absolute count 0.03 x10'3 /uL 0.01-0 .08 Not Available [facility] (Lab) [address] [place], [address], 01/06/2024 14:19:25 01/06/20 24 01/06/2024 CBC/C OMPLE TE BLD COUNT W/DIF F immature granulocytes ,absolute 0.00 x10'3 /uL 0.00-0 .05 Not Available [facility] (Lab) [address] [place], [address], 01/06/2024 14:19:25 01/06/20 24 01/06/2024 CBC/C OMPLE TE BLD COUNT W/DIF F nucleated red blood cells 0.0 % -0 Not Available [facility] (Lab) [address] [place], [address], 01/06/2024 14:19:25 01/06/20 24 01/06/2024 CBC/C OMPLE TE BLD COUNT W/DIF F NRBC# 0.00 x10'3 /uL Not Available [facility] (Lab) [address] [place], [address], 01/06/2024 14:19:25 01/06/20 24 01/06/2024 COMPR EHENS GLORIA METAB OLIC PANEL sodium 137 mmol/ L 137-14 5 Not Available [facility] (Lab) [address] [place], [address], 01/06/2024 15:53:09 01/06/20 24 01/06/2024 COMPR EHENS GLORIA METAB OLIC PANEL potassium 3.3 mmol/ L 3.5-5. 1 low Not Available [facility] (Lab) [address] [place], [address], 01/06/2024 15:53:09 01/06/20 24 01/06/2024 COMPR EHENS GLORIA METAB OLIC PANEL chloride 103 mmol/ L 98-107 Not Available [facility] (Lab) [address] [place], [address], 01/06/2024 15:53:09 01/06/20 24 01/06/2024 COMPR EHENS GLORIA METAB OLIC PANEL carbon dioxide 28 mmol/ L 22-30 Not Available [facility] (Lab) [address] [place], [address], 01/06/2024 15:53:09 01/06/20 24 01/06/2024 COMPR EHENS GLORIA METAB OLIC PANEL anion gap 9.3 mmol/ L 14-22 low Not Available [facility] (Lab) [address] [place], [address], 01/06/2024 15:53:09 01/06/20 24 01/06/2024 COMPR EHENS GLORIA METAB OLIC PANEL glucose 108 mg/dL 70-99 high Not Available [facility] (Lab) [address] [place], [address], 01/06/2024 15:53:09 01/06/20 24 01/06/2024 COMPR EHENS GLORIA METAB OLIC PANEL BUN 8 mg/dL 8-19 Not Available [facility] (Lab) [address] [place], [address], 01/06/2024 15:53:09 01/06/20 24 01/06/2024 COMPR EHENS GLORIA METAB OLIC PANEL creatinine 0.66 mg/dL 0.66-1 .25 Not Available [facility] (Lab) [address] [place], [address], 01/06/2024 15:53:09 01/06/20 01/06/2024 COMPR EHENS GLORIA METAB OLIC PANEL GFR >60 Refer ence Range : [place] ge GFR Healt hy Adult : >60 [...] calcu lator is avail able on the [facility] websi te: [email or web address] :[email or web address] [email or web address] [email or web address]/gf r_[email or web address] culat or Not Available [facility] (Lab) [address] [place], [address], 01/06/2024 15:53:09 01/06/20 24 01/06/2024 COMPR EHENS GLORIA METAB OLIC PANEL alkaline phosphatase 72 U/L 38-126 Not Available [facility] (Lab) [address] [place], [address], 01/06/2024 15:53:09 01/06/20 24 01/06/2024 COMPR EHENS GLORIA METAB OLIC PANEL alanine aminotransfe rase 18 U/L 0-35 Not Available [facility] (Lab) [address] [place], [address], 01/06/2024 15:53:09 01/06/20 24 01/06/2024 COMPR EHENS GLORIA METAB OLIC PANEL aspartate aminotransfe rase 29 U/L 15-37 Not Available [facility] (Lab) [address] [place], [address], 01/06/2024 15:53:09 01/06/20 24 01/06/2024 COMPR EHENS GLORIA METAB OLIC PANEL bilirubin, total 0.60 mg/dL 0.20-1 .30 Not Available [facility] (Lab) [address] [place], [address], 01/06/2024 15:53:09 01/06/20 24 01/06/2024 COMPR EHENS GLORIA METAB OLIC PANEL calcium 9.1 mg/dL 8.4-10 .2 Not Available [facility] (Lab) [address] [place], [address], 01/06/2024 15:53:09 01/06/20 24 01/06/2024 COMPR EHENS GLORIA METAB OLIC PANEL total protein 7.7 g/dL 6.3-8. 2 Not Available [facility] (Lab) [address] [place], [address], 01/06/2024 15:53:09 01/06/20 24 01/06/2024 COMPR EHENS GLORIA METAB OLIC PANEL albumin 4.3 g/dL 3.4-5. 0 Not Available [facility] (Lab) [address] [place], [address], 01/06/2024 15:53:09 01/06/20 24 01/06/2024 COMPR EHENS GLORIA METAB OLIC PANEL globulin 3.4 g/dL 2.6-4. 2 Not Available [facility] (Lab) [address] [place], [address], 01/06/2024 15:53:09 01/06/20 24 01/06/2024 COMPR EHENS GLORIA METAB OLIC PANEL A/G ratio 1.3 ratio 1.0-2. 0 Not Available [facility] (Lab) [address] [place], [address], 01/06/2024 15:53:09 01/06/20 24 01/06/2024 LIPID PANEL cholesterol 117 mg/dL 140-19 9 low NIH JONEL NSUS RECOM MENDA TION FOR DONTAE STERO L: ADULT CHILD LOW RISK: <200 <170 BORDE RLINE : <200- 239 ----- HIGH RISK: >240 >200 Not Available [facility] (Lab) [address] [place], [address], 01/06/2024 15:53:19 01/06/20 24 01/06/2024 LIPID PANEL triglyceride s 55 mg/dL 0-150 NIH JONEL NSUS REPOR T RECOM MENDA TION FOR TRIGL YCERI CAYLA: ADULT CHILD LOW RISK: <150 ----- BODER LINE: 150-1 99 ----- HIGH RISK: >200 ----- Not Available [facility] (Lab) [address] [place], [address], 01/06/2024 15:53:19 01/06/20 24 01/06/2024 LIPID PANEL HDL cholesterol 48 mg/dL 40- Not Available [facility] (Lab) [address] [place], [address], 01/06/2024 15:53:19 01/06/20 24 01/06/2024 LIPID PANEL [...] WILL NOT BE REPOR KYM. Not Available [facility] (Lab) [address] [place], [address], 01/06/2024 15:53:19 01/06/20 24 01/06/2024 T4 FREE free T4 1.17 NG/dL 0.78-2 .19 Not Available [facility] (Lab) [address] [place], [address], 01/06/2024 16:14:47 01/06/20 24 01/06/2024 TSH thyroid-stim ulating hormone 0.423 uIU/m L 0.465- 4.680 low Not Available [facility] (Lab) [address] [place], [address], 01/06/2024 16:27:12 01/06/20 24 01/06/2024 VITAM IN D 25-HY DROXY [id number] 13.8 NG/mL 30-100 low Vitam in D Statu s: Defic ient: <20 ng/mL Insuf ficie nt: 20-29 ng/mL Suffi cient : 30-10 0 ng/mL Not Available [facility] (Lab) [address] [place], [address], 01/06/2024 19:42:41 01/06/20 24 01/06/2024 VITAM IN B12 (GERMAN CALLI ) vb12 588 pg/mL 239-93 1 Not Available [facility] (Lab) [address] [place], [address], 01/06/2024 20:34:59 01/06/20 24 01/06/2024 FOLAT E, SERUM /PLAS MA folate 12.7 NG/mL 2.76-2 0.0 Not Available [facility] (Lab) [address] [place], [address], 01/06/2024 20:35:05 02/15/20 24 02/15/2024 CBC/C OMPLE TE BLD COUNT W/DIF F white blood cells 6.5 x10'3 /uL 4.2-10 .8 Not Available [facility] (Lab) [address] [place], [address], 02/15/2024 17:51:17 02/15/20 24 02/15/2024 CBC/C OMPLE TE BLD COUNT W/DIF F red blood cells 3.99 x10'6 /uL 3.80-5 .20 Not Available [facility] (Lab) [address] [place], [address], 02/15/2024 17:51:17 02/15/2002/15/2024 CBC/C OMPLE TE BLD COUNT W/DIF F hemoglobin 12.3 g/dL 12.0-1 5.6 Not Available [facility] (Lab) [address] [place], [address], 02/15/2024 17:51:17 02/15/2002/15/2024 CBC/C OMPLE TE BLD COUNT W/DIF F hematocrit 37.1 % 35.7-4 5.7 Not Available [facility] (Lab) [address] [place], [address], 02/15/2024 17:51:17 02/15/2002/15/2024 CBC/C OMPLE TE BLD COUNT W/DIF F mean red cell volume 93.0 fL 82.0-9 9.0 Not Available [facility] (Lab) [address] [place], [address], 02/15/2024 17:51:17 02/15/2002/15/2024 CBC/C OMPLE TE BLD COUNT W/DIF F mean red cell hemoglobin 30.8 pg 27.0-3 3.0 Not Available [facility] (Lab) [address] [place], [address], 02/15/2024 17:51:17 02/15/20 24 02/15/2024 CBC/C OMPLE TE BLD COUNT W/DIF F mean RBC HGB concentratio n 33.2 g/dL 31.0-3 6.0 Not Available [facility] (Lab) [address] [place], [address], 02/15/2024 17:51:17 02/15/20 24 02/15/2024 CBC/C OMPLE TE BLD COUNT W/DIF F red cell distribution width 13.8 % 11.8-1 5.5 Not Available [facility] (Lab) [address] [place], [address], 02/15/2024 17:51:17 02/15/20 24 02/15/2024 CBC/C OMPLE TE BLD COUNT W/DIF F platelets 316 x10'3 /uL 150-40 0 Not Available [facility] (Lab) [address] [place], [address], 02/15/2024 17:51:17 02/15/20 24 02/15/2024 CBC/C OMPLE TE BLD COUNT W/DIF F mean platelet volume 9.8 fL 9.0-12 .4 Not Available [facility] (Lab) [address] [place], [address], 02/15/2024 17:51:17 02/15/20 24 02/15/2024 CBC/C OMPLE TE BLD COUNT W/DIF F neutrophils 36.6 % 39.0-7 2.0 low Not Available [facility] (Lab) [address] [place], [address], 02/15/2024 17:51:17 02/15/2002/15/2024 CBC/C OMPLE TE BLD COUNT W/DIF F lymphocytes 51.9 % 16.0-4 7.0 high Not Available [facility] (Lab) [address] [place], [address], 02/15/2024 17:51:17 02/15/20 24 02/15/2024 CBC/C OMPLE TE BLD COUNT W/DIF F monocytes 7.3 % 5.0-12 .0 Not Available [facility] (Lab) [address] [place], [address], 02/15/2024 17:51:17 02/15/20 24 02/15/2024 CBC/C OMPLE TE BLD COUNT W/DIF F eosinophils 2.9 % 1.0-7. 0 Not Available [facility] (Lab) [address] [place], [address], 02/15/2024 17:51:17 02/15/20 24 02/15/2024 CBC/C OMPLE TE BLD COUNT W/DIF F basophils 1.1 % 0.0-2. 0 Not Available [facility] (Lab) [address] [place], [address], 02/15/2024 17:51:17 02/15/20 24 02/15/2024 CBC/C OMPLE TE BLD COUNT W/DIF F immature granulocytes 0.2 % 0.00-0 .50 Not Available [facility] (Lab) [address] [place], [address], 02/15/2024 17:51:17 02/15/20 24 02/15/2024 CBC/C OMPLE TE BLD COUNT W/DIF F neutrophils, absolute count 2.38 x10'3 /uL 1.5-8. 0 Not Available [facility] (Lab) [address] [place], [address], 02/15/2024 17:51:17 02/15/20 24 02/15/2024 CBC/C OMPLE TE BLD COUNT W/DIF F lymphocytes, absolute count 3.36 x10'3 /uL 1.07-3 .43 Not Available [facility] (Lab) [address] [place], [address], 02/15/2024 17:51:17 02/15/20 24 02/15/2024 CBC/C OMPLE TE BLD COUNT W/DIF F monocytes, absolute count 0.47 x10'3 /uL 0.29-0 .99 Not Available [facility] (Lab) [address] [place], [address], 02/15/2024 17:51:17 02/15/20 24 02/15/2024 CBC/C OMPLE TE BLD COUNT W/DIF F eosinophils, absolute count 0.19 x10'3 /uL 0.02-0 .53 Not Available [facility] (Lab) [address] [place], [address], 02/15/2024 17:51:17 02/15/20 24 02/15/2024 CBC/C OMPLE TE BLD COUNT W/DIF F basophils, absolute count 0.07 x10'3 /uL 0.01-0 .08 Not Available [facility] (Lab) [address] [place], [address], 02/15/2024 17:51:17 02/15/20 24 02/15/2024 CBC/C OMPLE TE BLD COUNT W/DIF F immature granulocytes ,absolute 0.01 x10'3 /uL 0.00-0 .05 Not Available [facility] (Lab) [address] [place], [address], 02/15/2024 17:51:17 02/15/20 24 02/15/2024 CBC/C OMPLE TE BLD COUNT W/DIF F nucleated red blood cells 0.0 % -0 Not Available [facility] (Lab) [address] [place], [address], 02/15/2024 17:51:17 02/15/20 24 02/15/2024 CBC/C OMPLE TE BLD COUNT W/DIF F NRBC# 0.00 x10'3 /uL Not Available [facility] (Lab) [address] [place], [address], 02/15/2024 17:51:17 02/27/20 23 11/26/2022 US, echoc ardio gram No observ ation record ed. [email or web address] [facility] [address] [place], [address], 07/18/2023 20:12:16 12/31/19 24 12/31/2023 XR, lumbo sacra l spine , 2 or 3 view No observ ation record ed. [email or web address] Not Available 2023 16:45:13 02/15/20 24 01/08/2012 polys omnog sana, diagn ostic , 6 yrs or older No observ ation record ed. [email or web address] Not Available 2023 11:49:02 Result Notes None recorded. Problems Name Problem SNOMED Code Status Onset Date Resolution Date Notes Provider Name and Address Organization Details Recorded Time Goiter 5548002 Active 2021 Not Available [facility] 3 00:55:48 Obesity 517385420 Active 2021 Not Available [facility] 3 00:55:48 Essential hypertension 25804104 Active 2021 Not Available [facility] 3 00:55:48 Serum vitamin B12 below reference range 588751875 Active 2023 Rl thomas MD [address] [facility] [place] [address], [place], [address] , [employer] [facility] [employer] 4 16:10:30 Vitamin D deficiency 68046995 Active 2023 Rl thomas MD [address] [facility] [facility] [address], [place], [address] , [employer] 4 16:10:36 Low back pain 152063549 Active 2023 Stephanie Vargas MA [facility], [employer] 4 12:47:49 Pulmonary hypertension 10393580 Active 2023 Heath Salomon MD [address], [place], [address] , [facility] [employer] [facility] [employer] [facility] 4 15:59:31 Dyspnea on exertion 23419767 Active 2023 Rl thomas MD [address], [place], [address] , [employer] [facility] [employer] [facility] 4 20:55:59 Intermittent dysphagia 95539898 Active 2023 Rl thomas MD [address], [place], [address] , [facility] [employer] [facility] [employer] [facility] 4 20:55:59 Obstructive sleep apnea syndrome 31214130 Active 2023 Rl thomas MD [address], [place], [address] , [employer] [facility] [employer] [facility] 4 20:55:59 Fatigue 40126029 Active 2023 Rl thomas MD [address] [facility], [place], [address] , [employer] [facility] [employer] [facility] 4 21:03:22 Notes:Medical History: Bruxi sm Rhinitis to multiple environmental allergens with postnasal drip Eosinophils 20/uL IgE 68 IU/mL AAT PiM_ 143 mg% Goiter Early REM onset Obesity with mod restrictive airflow impairment Mild TR RVSP 40 mmHg Hypertension EF 51% Thoracolumbar DDD Procedure History: Left knee meniscus repair 2013 Tubal ligation 2018 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 Procedures Surgical History Date Name Laterality Status Provider Name and Address Organization Details Recorded Time 8 Tubal Ligation completed Not Available [facility] 11/05/2022 13:10:32 3 Knee completed Not Available [facility] 3 13:10:32 Imaging Results None recorded. Procedure [...] Updated DateTime 4 170.18 cm 43.2 kg/m2 527236. 49 g 97.5 [degF] 78 /min 122/84 mm[Hg] Linda Avina [facility] [employer] [facility] [employer] [facility] [facility] 4 16:06:42 Date Recorded Body height Body mass index (BMI) Body weight Heart rate Oxygen saturation Oxygen saturation in Arterial blood by Pulse oximetry Body temperature Systolic And Diastolic Provider Name and Address Organization Details Last Updated DateTime 4 170.18 cm 44 kg/m2 400967. 46 g 65 /min 95 % 95 % 98 [degF] 120/74 mm[Hg] Arnold Loera CMA [employer] [facility] [place] 4 15:47:20 Date Recorded Body height Body mass index (BMI) Body weight Body temperature Heart rate Systolic And Diastolic Provider Name and Address Organization Details Last Updated DateTime 3 170.18 cm 42.9 kg/m2 087374. 31 g 97.7 [degF] 64 /min 136/86 mm[Hg] Maida Garcia Katerine NM [employer] [facility] [employer] [facility] 3 15:30:11 Date Recorded Body height Body mass index (BMI) Body weight Body temperature Heart rate Oxygen saturation Oxygen saturation in Arterial blood by Pulse oximetry Systolic And Diastolic Provider Name and Address Organization Details Last Updated DateTime 4 170.18 cm 44.3 kg/m2 961330. 64 g 98.5 [degF] 65 /min 95 % 95 % 122/82 mm[Hg] Jody Solomon MA [employer] [facility] [place] 4 17:11:36 Date Recorded Body height Provider Name an d Address Organization Details Last Updated DateTime 04/06/2024 170.18 cm Jody Solomon MA [employer] [facility] [place] 04/06/2024 17:07:52 Date Recorded Body height Body mass index (BMI) Body weight Body temperature Heart rate Systolic And Diastolic Provider Name and Address Organization Details Last Updated DateTime 3 170.18 cm 43.7 kg/m2 786153. 27 g 97.9 [degF] 60 /min 130/86 mm[Hg] Maida Garcia Katerine [employer] [facility] [employer] [facility] 16:13:17 Social History Question Answer Notes LastModified by Organization Details LastModified Time Tobacco Smoking Status Never Smoker Not Available [facility] 11/05/2022 13:10:27 What Is Your Level Of Caffeine Consumption? Heavy [id number].[id number] [id number] Information not available 11/05/2022 In The 14 Days Before Symptom Onset, Have You Had Close Contact With A Laboratory-confi rmed COVID-19 While That Case Was Ill? No MIGRATION.030 [id number] Information not available 11/05/2022 In The 14 Days Before Symptom Onset, Have You Had Close Contact With A Person Who Is Under Investigation For COVID-19 While That Person Was Ill? No MIGRATION.030 [id number] Information not available 11/05/2022 What Type Of Diet Are You Following? REGULAR MIGRATION.030 [id number] Information not available 11/05/2022 What Is The Highest Grade Or Level Of School You Have Completed Or The Highest Degree You Have Received? [id number] [employer] MIGRATION.030 [id number] Information not available 11/05/2022 Do You Have An Electrostatic Air Filter? No Information not available 12/31/2022 Have There Been Any Changes To Your Family Or Social Situation? No MIGRATION.0301 [id number] Information not available 11/05/2022 Are There Any Guns Present In Your Home? No MIGRATION.0301 [id number] Information not available 11/05/2022 Do You Have A Humidifier? No Information not available 12/31/2022 Do You Use Insect Repellent Routinely? No MIGRATION.0301 [id number] Information not available 11/05/2022 Where Do You Live? SingleLevelHouse MIGRATION.0301 [id number] Information not available 11/05/2022 Do You Have Moisture Problems In Your Home? No Information not available 12/31/2022 What Was The Date Of Your Most Recent Tobacco Screening? 03/29/2024 [email or web address] Information not available 03/29/2024 Do You Have Any Pets? Yes MIGRATION.0301 [id number] Information not available 11/05/2022 What Is Your Relationship Status? Domestic Partner MIGRATION.0301 [id number] Information not available 11/05/2022 Do You Use Your Seat Belt Or Car Seat Routinely? Yes Information not available 12/31/2022 Do You Have Smoke And Carbon Monoxide Detectors In Your Home? Yes MIGRATION.0301 043100 Information not available 11/05/2022 Are You Passively Exposed To Smoke? Yes MIGRATION.0301 [id number] Information not available 11/05/2022 Are There Any Smokers In Your House? Yes MIGRATION.0301 146092 Information not available 11/05/2022 Do You Use Sunscreen Routinely? No MIGRATION.0301 [id number] Information not available 11/05/2022 Has Tobacco Cessation Counseling Been Provided? No MIGRATION.0301 [id number] Information not available 11/05/2022 Have You Recently Traveled Abroad? No MIGRATION.0301 [id number] Information not available 11/05/2022 Do You Have Any Dietary Restrictions? No MIGRATION.0301 862437 Information not available 11/05/2022 Sex: Unknown Functional Status Question Answer Note LastModified by [employer] Details LastModified Time Do you use any illicit or recreational drugs? No MIGRATION.[id number] Information not available 11/05/2022 Do you or have you ever used any other forms of tobacco or nicotine? No MIGRATION.099757 6981 Information not available 11/05/2022 What is your level of alcohol consumption? Occasional MIGRATION.696738 1116 Information not available 11/05/2022 Are you currently employed? Yes [email or web address] Information not available 03/29/2024 What is your occupation? [employer] ([employer]) MIGRATION.230081 7419 Information not available 11/05/2022 What is your exercise level? None MIGRATION.894318 8252 Information not available 11/05/2022 Mental Status Question Answer Note LastModified by [employer] Details LastModified Time Do you feel stressed (tense, restless, nervous, or anxious, or unable to sleep at night)? [id number] work [id number].[id number] 6 Information not available 11/05/2022 Family History Relationship Description Onset Age of this Age Resolved Age Notes LastModified by Organization Details LastModified Time Paternal Grandmother Diabetes mellitus MIGRATION.444 [id number] Not available 11/05/2022 13:10:33 Paternal Grandmother Hypertensive disorder MIGRATION.697 [id number] Not available 11/05/2022 13:10:33 Brother Diabetes mellitus MIGRATION.121 [id number] Not available 11/05/2022 13:10:33 Brother Glaucoma MIGRATION.630 [id number] Not available 11/05/2022 13:10:33 Brother Kidney disease MIGRATION.471 [id number] Not available 11/05/2022 13:10:33 Brother Hypertensive disorder MIGRATION.730 [id number] Not available 11/05/2022 13:10:33 Father Glaucoma MIGRATION.144 [id number] Not available 11/05/2022 13:10:33 Father Hypertensive disorder MIGRATION.814 [id number] Not available 11/05/2022 13:10:33 Mother Rheumatism MIGRATION.933 [id number] Not available 11/05/2022 13:10:33 Mother Hypertensive disorder MIGRATION.182 [id number] Not available 11/05/2022 13:10:33 Maternal Grandmother Gout MIGRATION.335 [id number] Not available 11/05/2022 13:10:33 Maternal Grandmother Congestive heart failure [email or web address] Not available 2022 11:27:55 Mother Congestive heart failure [email or web address] Not available 2022 11:28:03 Medical History Condition Response OBESITY Y HYPERTENSION Y HEADACHES/MIGRAINES Y Gynecological History Statement/Question Response How many [...] virus, quadrivalent, PF 07/08/2022 completed Not Available [facility] 00:[facility]:48 Past Encounters Encounter ID Performer Location Encounter Start Date Encounter Closed Date Diagnosis/Indication Diagnosis SNOMED-CT Code Diagnosis ICD10 Code Diagnosis IMO Codes Diagnosis Note [id number] En Covington MD [facility] [place] [facility] [address] [facility] [address] [place] [address] 07/08/2022 00:00:00 07/08/2022 22:40:34 [id number] En Covington MD [facility] [place] [place] Med [facility] [address] [address] 10/20/2022 00:00:00 10/26/2022 20:44:52 [id number] Heath Salomon MD [facility] [place] [place] [id number] 12/31/2022 10:41:49 01/01/2023 08:24:28 Dyspnea on exertion 27710056 R06.09 R05.9 T78.40XA D89.9 I51.7 [id number] En Covington MD [facility] [place] Internal Med [address] [address] 02/26/2023 15:06:09 02/26/2023 16:00:46 Edema 326800104 R60.9 Snoring 08205775 R06.83 Essential hypertension 21406306 I10 [id number] Rl thomas MD [facility] Internal Med [place] [address] 11/24/2023 15:56:33 11/24/2023 16:28:35 Screening - NAD 623855195 Z13.9 PAP: get this done Get yearly flu shotGet Tdap if not doneCan do COVID 19 vaccine and its boosters RTC in 4 monthsDo labs, ER if worse, she did verbalize her understand ing of the above Dyspnea on exertion 60[address] R06[address] Salomon 12/31/2022 , needs a f/u apt Essential hypertension 99083968 I10 On losartan 50mg dailyUsed to be on lasix for pedal edemaGet labs Gynecologi c examination 27585201 Z01.419 Serum sarah min B12 below reference range 578189634 R79.89 Vitamin D deficiency 347 00350 E55.9 Goiter 3326400 E04.9 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, will get US thyroid and labs Intermitte nt dysphagia 18210600 R13.19 Intermitte nt, feels that she has to drink water to swallow, will get an EGD done, also get an US thyroid as a enlarged goiter may cause this also Obstructiv e sleep apnea syndrome 56629420 G47.33 Excessive snoring, will refer to Dr Salomon Obesity 636358926 E66.9 Get US thyroid as she may need to be on GLP-1 [id number] Heath Salomon MD [facility] [address] [address] 02/15/2024 15:35:48 02/16/2024 08:18:54 Dyspnea on exertion 79128687 R06.09 R05.9 T78.40XA I51.7 Pulmonary hypertension 11697817 I27.20 I27.24 Sleep apnea 56835348 G47 .30 G47.36 G47.61 G47.33 [id number] Rl thomas MD [facility] Internal Med [facility] [address] [place] [address] 03/29/2024 17:02:32 03/29/2024 17:41:28 Screening - NAD 872573200 Z13.9 PAP: get this done Get yearly flu shotGet Tdap if not doneCan do COVID 19 vaccine and its boosters RTC in 2 weeks for zepbound teaching 03/29/2024 OVRTC in 3 monthsDo labs, ER if worse, she did verbalize her understand ing of the above Dyspnea on exertion [address] Salomon 02/15/2024 , needs a f/u apt Essential hypertension 08856576 I10 On losartan 50mg dailyUsed to be on lasix for pedal edemaGet labs Gynecologi c examination 47588090 Z01.419 Serum sarah min B12 below reference range 547033273 R79.89 Vitamin D deficiency 347 10030 E55.9 Goiter 2442492 E04.9 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, will get US thyroid and labs US thyroid 10/20/2022 : Dr Covington ordered Intermitte nt dysphagia 12112358 R13.19 Intermitte nt, feels that she has to drink water to swallow, will get an EGD done, also get an US thyroid as a enlarged goiter may cause this also Obstructiv e sleep apnea syndrome 22828818 G47.33 Excessive snoring, will refer to Dr Umm Salomon 02/15/2024 Obesity 564925367 E66.9 Get US thyroid as she may need to be on GLP-1Denie s any MEN2, MCT or parathyroi d, or pancreatic symptomsWi ll get on Zepbound once US thyroid and labs are done Fatigue 49526863 R53.83 Dr Shannon Muhammad 11/10/2023 , ECHO done EF 54%, no more cardiac w/u, could be AGUSTÍN, vitamin defecienci esBeta jazmine stopped, started on losartan 50mg daily Screening mammography 24 184000 Z12.31 [id number] Rl thomas MD [facility] Internal Med [facility] [address] [facility] [place] [address] 04/06/2024 17:03:13 10/03/2024 14:45:18 Health Concerns Section Related Observation LastModified by Organization Detai ls LastModified Time None Recorded Concern Status LastModified by Organization Details LastModified Time None Recorded Advance Directives Directive None Recorded Payers Insurance Date Sequence Insurance Name Policy Number Policy Shearer Covered Member ID Shearer Member ID Guarantor Name 06/25/2024 1 [facility] [id number] Marcy Conley [id number] Marcy Conley Notes Date Note Type Note Provider Name and Address Organization Details Recorded Time 02/26/2023 text/html Occasionally some edemaStill working with PulmonaryBlood pressure reasonably controlledSome problems with snoring En Covington MD [address], [place] [address], [place], [address], [employer] 03/10/2023 19:07:00 11/24/2023 text/html OV 11/24/2023:Here to establish care Present Hx:HTNObesity Here to discuss above, she has no recent labs, states that she would like to discuss treatment for obesity and also get an US for the thyroid as she may have a 'goiter', she has also noted some dysphagia, and excessive snoring Rl Matt MD [address] [facility] [address], [place], [address], [employer] 11/24/2023 16:54:58 02/15/2024 text/html Primary care/Referring provider: Rl Matt MD Patient is here to go over shortness of breath evaluation/management. Initial development of shortness of breath: uration of shortness of breath: 2 yearsCondition of shortness of breath: stableTiming of shortness of breath: noneFrequency: every hourLimits activities: yesAggravating factors: walking, going up steps, doing laundry, talkingAlleviating factors: rest Modified [employer] (mMRC) Dyspnea Scale - Grade 2Grade 0 [...] fumes: noNickel: noSilica: noSoot: no During the [facility] diagnostic sleep study on 01/08/12 snoring = [...] chance of dozing. Heath Salomon MD [address], [address], [employer] 02/15/2024 16:28:30 03/29/2024 text/html OV 11/24/2023:Here [...] noted Rl Matt MD [address] [facility] [address], [place], [address], [employer] 03/29/2024 17:42:05 04/06/2024 text/html OV 11/24/2023:Here to [...] today, no new labs noted Bouchra sotomayor, [employer] [facility] [employer] 10/03/2024 14:45:17 OBGyn Episode No OBEpisode recorded.
[2025-07-03] MEDS: LACTATED RINGERS 1,000 ML 30 ML IV CONT ×2 (06:45→09:55)
[2025-07-03] MEDS: SCOPOLAMINE 1 MG PATCH 1 PATCH TRANSDERM (07:00)
[2025-07-03] MEDS: ACETAMINOPHEN 500 MG TABLET 1000 MG PO ×4 (07:00→23:40)
[2025-07-03] MEDS: KETOROLAC 15 MG/ML VIAL (*BKC) IV PUSH (07:00)
--- NOTE | 2025-07-03 07:03 | P.PNAN_ITS ---
Anes - Initial Pre Proc Eval Procedure: Operation Date: 07/03/25 07:30 Proposed Procedures p Robotic Assisted Total Laparoscopic Hysterectomy with Bilateral Salpingectomy - Saloni Hoskins MD Date/Time: 07/03/25 07:03 Surgeon: Saloni Hoskins MD Pre Op Diagnosis: abnormal uterine bleeding Patient Data Age: 44 Gender: F Height: 1.7 m Weight: 127.2 kg Allergies Allergy/AdvReac Type Severity Reaction Status Date / Time No Known Allergies Allergy Verified 06/22/25 14:38 Home Medications ?Medication ?Instructions ?Recorded ?Confirmed ?Type losartan 50 mg tablet 50 mg PO DAILY 01/07/2406/07 History Patient hx anesthesia problems: none Family hx anesthesia problems: none Results Review: All pre-operative results and documents have been reviewed as part of the pre-operative evaluation. [facility] Past Medical History Medical History Degenerative arthritis of knee, bilateral PIH ( induced hypertension) Benign essential HTN Thyroid nodule Morbid (severe) obesity due to excess calories Chronic migraine History of meniscal tear Hypertension Surgical History Surgical History History of tubal ligation 10/2017 H/O left knee surgery 10/08/2012 - Debrided left patellar tendon Family History Family History Mother CHF (congestive heart failure) Lupus Father Glaucoma High cholesterol Hypertension Other Diabetes mellitus Heart disease Social History Social History Social History: Smoking status: Former smoker Tobacco type: cigarettes Additional smoking assessment comments: Occasionally/socially years ago. 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 Gender identity (if verbalized by the patient): Female Sexual Orientation (if Verbalized by the Patient): Straight or Heterosexual Spiritual care concerns: No Anes - Eval Final PreProcedure Day of Procedure 07/03/25 07:03 Patient weight: morbidly obese Heart: regular rate and rhythm Lungs: clear to auscultation Airway: Mallampati scale class II Neurological: alert and oriented Last oral intake: >/= 8 hours ASA classification: III Emergent: no Anesthetic plan: proceed Anesthesia type and monitoring: general ETT and standard monitoring Results Review: All pre-operative results and documents have been reviewed as part of the pre- operative evaluation. Informed Consent: The patient's anesthetic plan and its attendant risks and benefits were discussed with the patient/family/POA. Questions were solicited and answers provided to the satisfaction of the patient/family/POA.
--- NOTE | 2025-07-03 07:06 | WPDHPUPDATE1 ---
History and Physical Update Update Date/Time: 07/03/25 07:06 History and Physical has been reviewed, including an updated exam of the patient. There are NO changes in the patient's condition. Risks, benefits, and alternatives have been discussed and questions answered. Patient agrees to proceed with robotic assisted total laparoscopic hysterectomy with bilateral salpingectomy and cystoscopy.
[2025-07-03] MEDS: ceFAZolin 3 GM/D5W 100 ML 100 ML IVPB (07:37)
[2025-07-03 07:46] LABS: BEDSIDEPREGUCG Negative (Negative)
[2025-07-03] MEDS: metroNIDAZOLE 500 MG/ISO 100ML 500 MG/100 ML BAG 100 MG IVPB (08:06)
[2025-07-03] MEDS: BUPIVACAINE/EPINEPHRINE 0.5% 50 ML VIAL 30 ML INFILTRATE (08:44)
--- NOTE | 2025-07-03 09:32 | S_PTH ---
PATIENT: Marcy Conley LOC: [facility] U#:[id number] AGE/SX: 44/F ROOM: RE07/03/[address]: Saloni Hoskins MD : 1980 BED: DIS: 07/04/2025 SPEC #: [id number] RECD: 07/03/25 11:13 STATUS: MEMO REQ #: [id number] RAJ: 07/03/25 09:[address]: Saloni Hoskins DEPT: [facility] Surgical RECD BY: Vonda Cordon ENTERED: 07/03/25 11:13 SP TYPE: Surgical OTHR DR: Rl MattMD Tissues: A - Uterus Procedures: Hematoxylin and Eosin Stain Gross and Microscopic Level 5
--- NOTE | 2025-07-03 09:38 | SUR.OPER ---
weight of uterus and cervix, 272.9 g weight of uterus, cervix, bilateral fallopian tubes 276.9 g
--- NOTE | 2025-07-03 09:50 | P.OP_ITS ---
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 History of BTL, left tubal with multiple small paratubal cysts. Bilateral simple appearing cysts; ~2-3cm. Good hemostasis at end of case. Surgicel powder used. Normal bladder without defects; bilateral ureteral efflux noted. Uterus,cervix, bilateral fallopian tubes: 276.9g Description of Procedure Marcy was taken to the operating room where she was placed under general anesthesia without issues. She received 2 g Ancef and 500mg Metronidazole. She was then prepped and draped in the usual sterile fashion in the dorsal lithotomy position with her legs in low Rashaad stirrups, her arms tucked at her side, with a strap over her chest. A time-out was performed. My attention was turned down below where a davalos catheter was placed. A bivalve speculum was placed within the vagina. The cervix was easily identified and the anterior lip of the cervix was grasped with single-tooth tenaculum. The uterus was then sounded to 10cm. The cervix was serially dilated to allow for the KAYKAY uterine manipulator; which was placed w/o issue (8cm tip with 3.5cm cervical ring). My gloves were changed and attention was then turned to the abdomen. A 5 mm trocar was placed under direct visualization at Su's point without issue. Once intra-abdominal placement was confirmed, the abdomen was insufflated with carbon dioxide gas. An abdominal survey was performed and the above findings were noted. Two additional ports were placed on the right and left side and the camera port was placed supraumbilical under direct visualization without issues. The 5mm port was switched out for the accessory port under direct visualization. The patient was then placed in deep Trendelenburg, with the legs slightly lowered. The robot was then docked. The instruments were placed intra- abdominally under direct visualization. I then un-scrubbed and went to the robotic console. I then started my hysterectomy on the right side. The ureter was easily identified transperitoneally and well out of the surgical field. The round ligament was clamped, coagulated, and transected. The uterine ovarian artery was then serially clamped, coagulated, and transected with good hemostasis. The broad ligament was then dissected anteriorly and posteriorly skeletonizing the uterine artery. The bladder flap was then developed on the right side and carried around the left, anteriorly. The uterine artery was then serially clamped and coagulated. Once the vessel was adequately coagulated, it was then transected with good hemostasis. The same procedure was then performed on the left side without complications. The uterus was noted to be devascularized. The bladder flap was verified out of the surgical field and the colpotomy was started anteriorly and continued in a clockwise fashion until the uterus was released. The uterus was removed from the abdomen via the vagina without complications. The vaginal cuff had small bleeders that were made hemostatic without complications. The vaginal cuff was then reapproximated using a 0 V lock suture. The fallopian tube were elevated and the mesosalpinx was coagulated and transected and the tubes were removed from the abdomen. The pelvis was then irrigated and suctioned free of all clots and debris, Surgicel powder was placed over all raw edges. Good hemostasis was noted. All instruments were removed from the abdomen and the robot was undocked. I then scrubbed back in and verified that the cuff was intact without any defects. The Davalos catheter was then removed. The cystoscope was placed within the bladder, which filled without difficulty. Bilateral ureteral efflux was noted. The bladder was examined and no defects or abnormalities were visualized. The bladder was drained. The cystoscope was removed. The Davalos catheter was replaced under aseptic technique. The 4 laparoscopic incisions were reapproximated using 4-0 Monocryl and covered with Dermabond. The laparoscopic incisions were infiltrated with local anesthesia for better pain control. Sponge, lap, instrument, and needle counts were correct at the end the procedure. Patient was awoken from general anesthesia and taken to recovery in a stable conditions with plans of overnight stay. Estimated Blood Loss 100 IV Fluids 1,300 Urine Output 250 Pathology Yes (uterus, cervix, bilateral fallopian tubes) Complications No immediate complications Condition Stable Disposition Floor [facility] Billing Surgery - Charge Forward: Surgery Billing
--- NOTE | 2025-07-03 10:55 | PC.NURSE ---
Pt arrives to OB # [phone] at 1055 per bed from PACU Drowsy, opens eyes to name Rates pain 5/10 Resting quietly Family at BS Call light within reach
[2025-07-03] MEDS: DEXTROSE 5%/LACTATED RINGERS 1,000 ML 125 ML IV CONT (11:10)
--- NOTE | 2025-07-03 12:35 | PC.NURSE ---
Pt c/o pressure to vaginal/rectal area Explained to pt that is normal Routine meds given to pt and encouraged rest Family remains at BS
[2025-07-03] MEDS: KETOROLAC 30 MG/ML VIAL (*BKC) IV PUSH ×3 (12:36→23:40)
[2025-07-03] MEDS: SIMETHICONE 80 MG TAB.CHEW PO ×2 (12:39→18:03)
[2025-07-03] MEDS: ONDANSETRON INJ 4 MG/2 ML VIAL IV PUSH (15:17)
[2025-07-03] MEDS: oxyCODONE HCL (*CRX) 5 MG TAB IR PO (15:17)
[2025-07-03] MEDS: DOCUSATE SODIUM 100 MG CAPSULE PO (18:03)
[2025-07-04 04:30] VITALS: BP 122/73; PULSE 78; RESP 20; TEMP 36.8; O2SAT 100
[2025-07-04 04:37] LABS: Hematocrit 35.2 % (37.0-47.0); Hemoglobin 11.7 g/dL (12.0-15.0); Immature Granulocyte Percent A 0.4 % (0-0.5); Lymphocytes Absolute Auto 1.31 K/mm3 (0.9-3.2); Mean Corpuscular HGB Conc 33.2 g/dl (32-36); Mean Corpuscular Hemoglobin 30.5 pg (26-34); Mean Corpuscular Volume 91.7 fl (80-100); Nucleated Red Blood Cells Absolute Auto 0.000 K/mm3 (0.0-0.012); Nucleated Red Blood Cells Perc 0.0 % (0.0-0.2); Platelet Count Result 338 k/mm3 (150-375); Red Blood Count 3.84 M/mm3 (4.2-5.4); White Blood Count 11.0 K/mm3 (4.5-10.0)
[2025-07-04 05:05] LABS: Anion Gap 7 mmol/L (4-12); Blood Urea Nitrogen 11 mg/dL (7-17); Calcium 8.7 mg/dL (8.4-10.2); Carbon Dioxide 24 mmol/L (22-30); Chloride 102 mmol/L (98-107); Estimated CRCL calculation 110 ml/min; Estimated Glomerular Filt Rate > 60; Glucose 118 mg/dL (65-110); Potassium 4.1 mmol/L (3.4-5.0); Sodium 133 mmol/L (137-145)
[2025-07-04] MEDS: IBUPROFEN 600 MG TABLET PO (05:30)
[2025-07-04] MEDS: ACETAMINOPHEN 500 MG TABLET 1000 MG PO (05:30)
--- NOTE | 2025-07-04 07:08 | P.PNOB_ITS ---
[employer] - A/P Assessment and plan (1) S/P laparoscopic hysterectomy: Code(s): Z90.710 - Acquired absence of both cervix and uterus Status: Acute Postoperative Procedures: Procedures Operation Date: 07/03/25 07:30 Actual Procedure Side Surgeon p Robotic Assisted Total Laparoscopic Hysterectomy with Bilateral Salpingectomy, Cystoscopy Bilateral Saloni Hoskins MD Postoperative day: 1 Postoperative status: doing well Postoperative plan: routine post-op care and discharge Time Spent With Patient Time: Total time spent is greater than 50% in coordination of care (as documented) at patient's floor/unit and/or counseling patient: Time with patient: less than 15 minutes [employer]- PN:Subj Post-Op Subjective Date/time seen: 07/04/25 07:15 Interval history: POD#1 Marcy reports doing well today. No issues overnight. Her pain is controlled with PO meds. She has tolerated regular diet. She denies any vaginal bleeding. She has voided. She has passed flatus. She has ambulated and denies any symptoms of anemia. Review of Systems 2 Review of Systems: All systems reviewed & are unremarkable except as noted in HPI and below (HPI) Constitutional: Constitutional: Denies chills, Denies fever(s) and Denies headache(s) Eyes: Eyes: Denies change in vision ENT: Denies dizziness and Denies headache(s) Cardiovascular: Cardiovascular: Denies chest pain and Denies rapid heart rate Respiratory: Respiratory: Denies cough Genitourinary: Genitourinary: Denies abnormal vaginal bleeding Neurologic: Denies dizziness and Denies headache(s) Exam 2 Const: General: cooperative, comfortable, no acute distress and obese N utritional Appearance: obese Orientation/consciousness: patient oriented x3 Resp: Effort & Inspection: normal respiratory effort Auscultation: clear to auscultation bilaterally Cardio: Rate: regular rate GI: Inspection: normal to inspection and incision ( LSC incisions c/d/i) GI Palp: Yes abdominal tenderness (appropriate) and Yes Soft to palpation A uscultation: normal bowel sounds : Other: normal bleeding on pad Skin: General skin exam: normal color Neuro: General: patient oriented x3 Psych: Appearance: grossly normal Affect: normal affect Attitude: c ooperative [employer] - PN: Obj Data Vital Signs Vital Signs: Vital Signs - 24 hr 07/03/25 06:45 07/03/25 09:55 07/03/25 10:10 Temperature 98.0 F 97.0 F L Pulse Rate 70 86 71 Respiratory Rate 16 16 14 Blood Pressure 149/94 H 154/89 H 163/89 H Pulse Oximetry 96 100 100 Oxygen Delivery Room Air Simple Face Mask Simple Face Mask Oxygen Flow Rate 6 6 07/03/25 10:25 07/03/25 10:30 07/03/25 10:40 Temperature Pulse Rate 72 76 Respiratory Rate 12 12 Blood Pressure 148/94 H 153/99 H Pulse Oximetry 100 100 Oxygen Delivery Simple Face Mask Room Air Room Air Oxygen Flow Rate 6 07/03/25 10:50 07/03/25 11:00 Temperature 96.9 F L 97.7 F Pulse Rate 79 80 Respiratory Rate 12 16 Blood Pressure 153/96 H 144/84 H Pulse Oximetry 99 100 Oxygen Delivery Room Air Oxygen Flow Rate Intake/Output Intake/Output: Intake & Output 06/30/25 07/01/25 07/02/25 07/03/25 23:59 23:59 23:59 23:59 Intake Total 2000 Output Total 450 Balance 1550 Meds/Results Medications: Active Medications Generic Name Dose Route Start Last Admin Trade Name Freq PRN Reason Stop Dose Admin Acetaminophen 1,000 mg 07/03/25 12:00 Acetaminophen 500 Mg Tablet PO Q6HR [facility] Docusate Sodium 100 mg 07/03/25 17:00 Docusate Sodium 100 Mg Capsule PO BID [facility] Hydromorphone HCl 0.5 mg 07/03/25 10:51 Hydromorphone Hcl Inj (*Crx) 1 Mg/Ml Syr IV PUSH Q2H PRN Breakthrough Pain Rated 4-6 or NPO Dextrose/Lactated Ringer's 1,000 mls @ 125 mls/hr 07/03/25 10:51 Dextrose 5%/Lactated Ringers IV CONT .Q8H [facility] Ibuprofen 600 mg 07/04/25 06:00 Ibuprofen 600 Mg Tablet PO Q6HR [facility] Ketorolac Tromethamine 30 mg 07/03/25 12:00 Ketorolac 30 Mg/Ml Vial (*Bkc) IV PUSH 07/04/25 00:01 Q6HR [facility] Losartan Potassium 50 mg 07/04/25 09:00 Losartan Potassium 50 Mg Tablet PO DAILY [facility] Naloxone HCl 0.1 mg 07/03/25 10:51 Naloxone Hcl 0.4 Mg/Ml Vial IV PUSH Q2M PRN Respiratory rate less than 10 Ondansetron HCl 4 mg 07/03/25 10:51 Ondansetron Inj 4 Mg/2 Ml Vial IV PUSH Q6H PRN Nausea And Vomiting Oxycodone HCl 5 mg 07/03/25 10:51 Oxycodone Hcl (*Crx) 5 Mg Tab Ir PO Q4H PRN Pain Rated 4-6 Oxycodone HCl 10 mg 07/03/25 10:51 Oxycodone Hcl (*Crx) 5 Mg Tab Ir PO Q6H PRN Pain Rated 7-10 Simethicone 80 mg 07/03/25 12:00 Simethicone 80 Mg Tab.Chew PO TIDWM [facility] Labs 07/04/25 04:07 07/04/25 04:07 Labs: Laboratory Results - last 24 hr 07/03/25 06:45 POC Urine HCG, Qual Negative
[2025-07-04 07:48] VITALS: BP 133/80; PULSE 66; RESP 18; TEMP 36.6; O2SAT 96
== END 2025-07-04 11:53 | disposition home or self-care (01) ==
LOC: ANHSURGERY 07:33 → ANHOB2 10:52
PROVIDERS: PCP Internal Medicine; Visit Provider Obstetrics & Gynecology
PROC: (CPT 58571; principal; 2025-07-03 07:30)
DX: D25.1 Intramural leiomyoma of uterus (principal); N93.9 Abnormal uterine and vaginal bleeding, unspecified; N83.292 Other ovarian cyst, left side; N83.291 Other ovarian cyst, right side; N83.8 Other noninflammatory disorders of ovary, fallopian tube and broad ligament; N88.8 Other specified noninflammatory disorders of cervix uteri
CPT/HCPCS: 58571; S2900; 36415; 80048; 85025; 88307; 99199; A9270; J0690; J1100; J1171; J1836; J1885; J2003; J2250; J2405; J2704; J3010; J7030; J7120; J7121